=== PATIENT | male | born 1965 | race Caucasian/White ===

== ENCOUNTER 2016-07-26 08:38 | Inpatient (IN) | payer OTHER ==
[2016-07-26 10:39] VITALS: BMI 27.3
--- NOTE | 2016-07-26 13:01 | HP ---
COWS - Scale Resting Pulse: 0= [place] 80 or Below Sweatin=Flushed/Facial Moisture Restless Observation: 1= Difficult to Sit Still Pupil Size: 0= Normal to Room Light Bone or Joint Aches: 2= Severe Diffuse Aches Runny Nose/ Eye Tearin= Runny Nose/Eyes GI Upset > 30mins: 2= Nausea/Diarrhea Tremor Observation: 2= Slight Tremor Visible Yawning Observation: 2= >3x During Session Anxiety or Irritability: 2=Irritable/Anxious Goose Flesh Skin: 3=Piloerection COWS Score: 18 Admission ROS S - HPI Chief Complaint: I am here to detox. Allergies/Adverse Reactions: Allergies Allergy/AdvReac Type Severity Reaction Status Date / Time Penicillins Allergy Unknown Verified 07/26/16 10:39 cefepime Allergy Verified 07/26/16 10:39 History of Present Illness: pt is a 50yr old male with a history of heroin dependence seeking detox for treatment. Exam Limitations: Physical Impairment (chronic back pain) - Ebola screening Have you traveled outside of the country in the last 21 days: No Have you had contact with anyone from an Ebola affected area: No Have you been sick,other than usual withdrawal symptoms: No Do you have a fever: No - Review of Systems Constitutional: Chills, Diaphoresis, Loss of Appetite, Night Sweats EENT: reports: Tearing, Nose Congestion Respiratory: reports: No Symptoms reported Cardiac: reports: Lightheadedness GI: reports: Constipated, Nausea, Poor Appetite, Poor Fluid Intake : reports: No Symptoms Reported Musculoskeletal: reports: Back Pain Integumentary: reports: Flushing, Sweating Neuro: reports: Tingling, Tremors Endocrine: reports: Excessive Sweating, Flushing, Intolerance to Cold, Intolerance to Heat Hematology: reports: No Symptoms Reported Psychiatric: reports: Judgement Intact, Mood/Affect Appropiate, Orientated x3, Agitated, Anxious Other Systems: Reviewed and Negative Patient History - Patient Medical History Hx Anemia: No Hx Asthma: No Hx Chronic Obstructive Pulmonary Disease (COPD): Yes (chronic bronchitis.) Hx Cancer: No Hx Cardiac Disorders: No Hx Congestive Heart Failure: No Hx Hypertension: Yes (does not know what med.) Hx Hypercholesterolemia: No Hx Pacemaker: No HX Cerebrovascular Accident: No Hx Seizures: No Hx Dementia: No Hx Diabetes: No Hx Gastrointestinal Disorders: Yes (GERD) Hx Liver Disease: No Hx Genitourinary Disorders: No Hx Sexually Transmitted Disorders: No Hx Renal Disease (ESRD): No Hx Thyroid Disease: No Hx Human Immunodeficiency Virus (HIV): No Hx Hepatitis C: Yes (received tx. ) Hx Depression: Yes Hx Suicide Attempt: Yes (Tried to overdose in 2010) Hx Bipolar Disorder: No Hx Schizophrenia: No - Patient Surgical History Past Surgical History: No Other Surgical History: Abscess to lower back in 02/19 Anesthesia Reaction: No - PPD History Previous Implant?: Yes Documented Results: Negative w/o proof Implanted On Prior R Admission?: No PPD to be Administered?: Yes - Reproductive History Patient is a Female of Child Bearing Age (11 -55 yrs old): No - Smoking Cessation Smoking history: Current every day smoker Have you smoked in the past 12 months: Yes Aproximately how many cigarettes per day: 10 Hx Chewing Tobacco Use: No Initiated information on smoking cessation: Yes 'Breaking Loose' booklet given: 07/26/16 - Substance & Tx. History Hx Alcohol Use: No Hx Substance Use: Yes Substance Use Type: Heroin, Marijuana Hx Substance Use Treatment: Yes - Substances Abused Heroin Route: Injection Frequency: Daily Amount used: 12 BAGS Age of first use: 29 Date of Last Use: 07/26/16 Marijuana/Hashish Route: Smoking Frequency: Daily Amount used: 2 BLUNTS Age of first use: 15 Date of Last Use: 07/23/16 Family Disease History - Family Disease History Family Disease History: Diabetes: Mother (HTN), Heart Disease: Father ( of MIat 93), Other: Brother (3brother healthy and living), Sister (1 sister healthy and living) Admission Physical Exam [facility] - Vital Signs Vital Signs: Vital Signs - 24 hr 07/26/16 10:37 Temperature 95.4 F L Pulse Rate 54 L Respiratory 18 Rate Blood Pressure 139/81 - Physical General Appearance: Yes: Appropriately Dressed, Moderate Distress, Tremorous, Irritable, Sweating, Anxious HEENTM: Yes: Hearing grossly Normal, Nasal Congestion, Rhinorrhea Respiratory: Yes: Lungs Clear, Normal Breath Sounds, No Respiratory Distress Neck: Yes: No masses,lesions,Nodules Breast: Yes: Within Normal Limits Cardiology: Yes: Regular Rhythm, Regular Rate, S1, S2 Abdominal: Yes: Normal Bowel Sounds, Non Tender, Soft Genitourinary: Yes: Within Normal Limits Back: Yes: Normal Inspection Musculoskeletal: Yes: full range of Motion Extremities: Yes: Normal Capillary Refill, Normal Inspection, Tremors Neurological: Yes: Fully Oriented, Alert, Normal Mood/Affect Integumentary: Yes: Normal Color, Diaphoresis, Track [place] Lymphatic: Yes: Within Normal Limits - Diagnostic (1) Hepatitis C Current Visit: Yes Status: Chronic Qualifiers: Viral hepatitis chronicity: chronic Hepatic coma status: without hepatic coma Qualified Code(s): B18.2 - Chronic viral hepatitis C (2) Low back pain Current Visit: Yes Status: Chronic Qualifiers: Chronicity: chronic Back pain laterality: midline Sciatica presence : without sciatica Qualified Code(s): M54.5 - Low back pain; G89.29 - Other chronic pain (3) Muscle spasm Current Visit: Yes Status: Chronic (4) Opioid dependence with withdrawal Current Visit: Yes Status: Chronic (5) GERD (gastroesophageal reflux disease) Current Visit: Yes Status: Chronic Qualifiers: Esophagitis presence: without esophagitis Qualified Code(s): K21.9 - Gastro-esophageal reflux disease without esophagitis (6) Cannabis dependence Current Visit: Yes Status: Chronic Cleared for Admission [facility] - Detox or Rehab [facility] Level of Care: Medically Managed Detox Regimen/Protocol: Methadone [facility] Breath Alcohol Content Breath Alcohol Content: 0 Urine Drug Screen - Results Drug Screen Negative: No Urine Drug Screen Results: THC-Marijuana, OPI-Opiates, OXY-Oxycodone
[2016-07-26] MEDS ORDERED: hydrOXYzine PAMOATE 50 MG CAPSULE (FP) PO PRN (13:10)
[2016-07-26] MEDS ORDERED: IBUPROFEN 400 MG TABLET (FP) PO PRN (13:10)
[2016-07-26] MEDS ORDERED: MAGNESIUM HYDROX 2400MG/30ML ORAL SUSPENSION 30 ML CUP PO PRN (13:10)
[2016-07-26] MEDS ORDERED: P-EPHED 60MG/TRIPROLIDI 2.5MG TABLET PO PRN (13:10)
[2016-07-26] MEDS ORDERED: MENTHOL/PHENOL 1 EACH UD MM PRN (13:10)
[2016-07-26] MEDS ORDERED: LOPERAMIDE HCL 2 MG CAPSULE PO PRN (13:10)
[2016-07-26] MEDS ORDERED: guaiFENesin/D-METHORPHAN HB 10 ML UNIT-DOSE CUPS PO PRN (13:10)
[2016-07-26] MEDS ORDERED: MAG HYDROX/AL HYDROX/SIMETH 30 ML UNIT-DOSE CUP PO PRN (13:10)
[2016-07-26] MEDS ORDERED: MAGNESIUM CITRATE 300 ML BOTTLE PO PRN (13:10)
[2016-07-26] MEDS ORDERED: diphenhydrAMINE HCL 50 MG CAPSULE PO PRN (13:10)
[2016-07-26] MEDS ORDERED: ACETAMINOPHEN 325 MG TABLET (FP) PO PRN (13:10)
[2016-07-26] MEDS ORDERED: ALBUTEROL SO4 6.7 GM HFA INHALER IH PRN (13:12)
[2016-07-26] MEDS ORDERED: METHADONE HCL 10 MG TABLET (FOR DETOX USE ONLY) PO ONE ×2 (13:54→23:00)
[2016-07-26] MEDS: diazePAM 5 MG TABLET PO PRN ×3 (14:05→22:34)
[2016-07-26] MEDS: LIDOCAINE 5% TOPICAL PATCH TP SCH (14:27)
[2016-07-26 16:49] LABS: URINE APPEARANCE CLEAR; URINE BILIRUBIN NEGATIVE (NEGATIVE); URINE BLOOD NEGATIVE (NEGATIVE); URINE COLOR DKYELLOW; URINE GLUCOSE (UA) NEGATIVE (NEGATIVE); URINE KETONE NEGATIVE (NEGATIVE); URINE LEUK ESTERASE NEGATIVE (NEGATIVE); URINE NITRITE NEGATIVE (NEGATIVE); URINE PROTEIN NEGATIVE (NEGATIVE); URINE UROBILINOGEN 2.0 E.U/dl E.U./dl (0.2-1.0)
[2016-07-26] MEDS ORDERED: THIAMINE HCL 100 MG TABLET (FP) PO SCH (22:00)
[2016-07-27] MEDS: diazePAM 5 MG TABLET PO PRN ×2 (05:37→17:05)
[2016-07-27] MEDS ORDERED: LEVOTHYROXINE NA 25 MCG TABLET (FP) PO SCH (07:00)
--- NOTE | 2016-07-27 09:13 | CONSULT ---
[facility] Psychiatric Consult - Data Date of interview: 07/27/16 Admission source: [facility] Identifying data: First admission to [facility] for this 50 y/o Hisanic male seeking detox treatment for heroin and cannabis dependence.Patient is ,a father of five,domiciled,unemployed and deprived of any source of income. Substance Abuse History: - Smoking Cessation. Smoking history: Current every day smoker. Have you smoked in the past 12 months: Yes. Aproximately how many cigarettes per day: 10. Hx Chewing Tobacco Use: No. Initiated information on smoking cessation: Yes. 'Breaking Loose' booklet given: 07/26/16. - Substance & Tx. History. Hx Alcohol Use: No. Hx Substance Use: Yes. Substance Use Type : Heroin, Marijuana. Hx Substance Use Treatment: Yes. - Substances Abused. * * Heroin. Route: Injection. Frequency: Daily. Amount used: 12 BAGS. Age of first use: 29. Date of Last Use: 07/26/16. Marijuana/Hashish. Route: Smoking. Frequency: Daily. Amount used: 2 BLUNTS. Age of first use: 15. Date of Last Use: 07/23/16. Confirmed by patient. Medical History: Hypertension,GERD,hepatitis C,chronic low back pain,bronchitis and hyothyroidism.History of an abcess in the lumbosacral area (treated in 2014) . Psychiatric History: Used to see a psychiatrist in 2010 to address depression and anxiety.Was prescribed seroquel and gabapentin.Stopped treatment for no specific reasons.Mr Boswell denies history of psychiatric hospitalizations.He declines to return to treatment.Expresses no interest in psychotropic medications with the exception of drugs necessary for detoxification.Patient admits to one suicide attempt via overdose with Ambien in the past. Physical/Sexual Abuse/Trauma History: Patient denies. Additional Comment: Urine Drug Screen Results: THC-Marijuana, OPI-Opiates, OXY- Oxycodone.Noted. Mental Status Exam - Mental Status Exam Alert and Oriented to: Time, Place, Person Cognitive Function: Good Patient Appearance: Well Groomed Mood: Withdrawn, Anxious, Apprehensive Affect: Mood Congruent Patient Behavior: Fatigued, Appropriate, Cooperative Speech Pattern: Clear, Appropriate Voice Loudness: Normal Thought Process: Goal Oriented Thought Disorder: Not Present Hallucinations: Denies Suicidal Ideation: Denies Homicidal Ideation: Denies Insight/Judgement: Poor Sleep: Poorly, Difficulty falling asleep Appetite: Good Muscle strength/Tone: Normal Gait/Station: Other (slow pace and a limp) Psychiatric Findings - Problem List ([place] 1, 2,3) (1) Opioid dependence with withdrawal Current Visit: Yes Status: Acute (2) Cannabis dependence Current Visit: Yes Status: Acute (3) Nicotine dependence Current Visit: Yes Status: Acute (4) Substance induced mood disorder Current Visit: Yes Status: Acute (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 (6) Intractable back pain Current Visit: Yes Status: Chronic (7) GERD (gastroesophageal reflux disease) Current Visit: Yes Status: Chronic Qualifiers: Esophagitis presence: without esophagitis Qualified Code(s): K21.9 - Gastro-esophageal reflux disease without esophagitis (8) Hepatitis C Current Visit: Yes Status: Chronic Qualifiers: Viral hepatitis chronicity: chronic Hepatic coma status: without hepatic coma Qualified Code(s): B18.2 - Chronic viral hepatitis C (9) Low back pain Current Visit: Yes Status: Chronic Qualifiers: Chronicity: chronic Back pain laterality: midline Sciatica presence : without sciatica Qualified Code(s): M54.5 - Low back pain (10) Insomnia Current Visit: Yes Status: Acute - Initial Treatment Plan Initial Treatment Plan: Psychoeducation.Detoxification.Remeron 7.5 mg po hs.Side effects/benefits discussed with the patient.He agrees with this careplan.Observation.
[2016-07-27] MEDS ORDERED: NICOTINE 21 MG/24 HOURS TOPICAL PATCH TD SCH (10:00)
[2016-07-27] MEDS ORDERED: METHADONE HCL 10 MG TABLET (FOR DETOX USE ONLY) PO ONE (10:00)
[2016-07-27] MEDS ORDERED: PANTOPRAZOLE 40 MG TABLET (FP) PO SCH (10:00)
[2016-07-27] MEDS ORDERED: PRENATAL VITAMINS W/ FOLIC ACID TABLET (FP) PO SCH (10:00)
[2016-07-27 10:12] LABS: MCH 28.3 pg (25.7-33.7); MCHC 33.3 g/dl (32.0-35.9); MEAN CELL VOLUME 84.9 fl (80-96); MEAN PLT VOLUME 10.2 fl (7.5-11.1); PLATELET COUNT 193 K/MM3 (134-434); RDW 14.4 % (11.9-15.9); WHITE BLOOD COUNT 9.3 K/mm3 (4.0-10.0)
[2016-07-27 10:14] LABS: HIV 1 & 2 AB NEGATIVE; HIV 1 AGp24 NEGATIVE
[2016-07-27] MEDS: LIDOCAINE 5% TOPICAL PATCH TP SCH (10:34)
[2016-07-27 10:57] LABS: ALBUMIN 4.3 g/dl (3.4-5.0); ALK PHOS 88 U/L (45-117); ANION GAP 10 (8-16); BILIRUBIN,TOTAL 0.6 mg/dL (0.2-1.0); CALCIUM 9.3 mg/dL (8.5-10.1); CO2 28 mmol/L (21-32); CREATININE 0.7 mg/dL (0.7-1.3); GLUCOSE,RANDOM 85 mg/dL (74-106); SGOT/AST 40 U/L (15-37); SGPT/ALT 71 U/L (12-78); TOT PROT 8.2 g/dl (6.4-8.2)
[2016-07-27] MEDS ORDERED: BACITRACIN 0.9 GM PACKET TP SCH (11:00)
--- NOTE | 2016-07-27 11:00 | PN ---
S COWS - Scale Resting Pulse: 0= [place] 80 or Below Sweatin= Chills/Flushing Restless Observation: 3= Extraneous Movement Pupil Size: 2= Moderately Dilated Bone or Joint Aches: 4=Acute Joint/Muscle Pain Runny Nose/ Eye Tearin= Nasal Congestion GI Upset > 30mins: 1= Stomach Cramp Tremor Observation of Outstretched Hands: 1= Tremor [place], Not Seen Yawning Observation: 1= 1-2x During Session Anxiety or Irritability: 2=Irritable/Anxious Goose Flesh Skin: 0=Smooth Skin COWS Score: 16 S Progress Note (SOAP) Subjective: ANXIETY,BODY ACHES,SMALL ABRASION RIGHT THUMB. Objective: 07/27/16 10:59 Vital Signs Temperature 98.3 F 07/27/16 10:22 Pulse Rate 62 07/27/16 10:22 Respiratory Rate 18 07/27/16 10:22 Blood Pressure 135/89 07/27/16 10:22 O2 Sat by Pulse Oximetry (%) Laboratory Last Values WBC 9.3 K/mm3 (4.0-10.0) 07/27/16 06:00 RBC 5.59 M/mm3 (4.00-5.60) 07/27/16 06:00 Hgb 15.8 GM/dL (11.7-16.9) 07/27/16 06:00 Hct 47.5 % (35.4-49) 07/27/16 06:00 MCV 84.9 fl (80-96) 07/27/16 06:00 MCHC 33.3 g/dl (32.0-35.9) 07/27/16 06:00 RDW 14.4 % (11.9-15.9) 07/27/16 06:00 Plt Count 193 K/MM3 (134-434) D 07/27/16 06:00 MPV 10.2 fl (7.5-11.1) D 07/27/16 06:00 Sodium 140 mmol/L (136-145) 07/27/16 06:00 Potassium 4.1 mmol/L (3.5-5.1) 07/27/16 06:00 Chloride 102 mmol/L (98-107) 07/27/16 06:00 Urine Color Dkyellow 07/26/16 15:30 Urine Appearance Clear 07/26/16 15:30 Urine pH 5.0 (5.0-8.0) 07/26/16 15:30 Ur Specific [place] 1.027 (1.001-1.035) 07/26/16 15:30 Urine Protein Negative (NEGATIVE) 07/26/16 15:30 Urine Glucose (UA) Negative (NEGATIVE) 07/26/16 15:30 Urine Ketones Negative (NEGATIVE) 07/26/16 15:30 Urine Blood Negative (NEGATIVE) 07/26/16 15:30 Urine Nitrite Negative (NEGATIVE) 07/26/16 15:30 Urine Bilirubin Negative (NEGATIVE) 07/26/16 15:30 Urine Urobilinogen 2.0 e.u/dl E.U./dl (0.2-1.0) 07/26/16 15:30 Ur Leukocyte Esterase Negative (NEGATIVE) 07/26/16 15:30 HIV 1&2 Antibody Screen Negative 07/26/16 10:50 HIV P24 Antigen Negative 07/26/16 10:50 LABS NOTED Assessment: 07/27/16 10:59 WITHDRAWAL SX Plan: CONTINUE DETOX
--- NOTE | 2016-07-27 11:07 | EKG ---
Test Reason : Blood Pressure : / mmHG Vent. Rate : 051 BPM Atrial Rate : 051 BPM P-R Int : 180 ms QRS Dur : 110 ms QT Int : 436 ms P-R-T Axes : 036 012 008 degrees QTc Int : 401 ms SINUS BRADYCARDIA OTHERWISE NORMAL ECG NO PREVIOUS ECGS AVAILABLE Confirmed by ASA MCGOWAN, ROXANNE ([id number]) on 07/27/2016 11:07:21 AM Referred By: Berhane Carrera Confirmed By:ROXANNE BRAY MD
[2016-07-27 17:37] VITALS: BP 128/74; PULSE 50; TEMP 97.5
--- NOTE | 2016-07-27 18:48 | DS ---
[facility] Detox Discharge Summary Admission Date: 07/26/16 Discharge Date: 07/27/16 - History Present History: Opioid Dependence Additional Comments: PATIENT WANTS TO LEAVE THE UNIT REFUSES TO WAIT FACE TO FACE WITH PROVIDER AGREES TO CONSIDER FOLLOW UP CARE PER COUNSELOR ARRANGED REFUSES E PRESCRIPTION Pertinent Past History: GERD HEPATITIS C NICOTINE DEPENDENCE HYPOTHYROID ASTHMA COPD - Physical Exam Results Vital Signs: Vital Signs Temperature 97.5 F L 07/27/16 17:36 Pulse Rate 50 L 07/27/16 17:36 Respiratory Rate 18 07/27/16 17:36 Blood Pressure 128/74 07/27/16 17:36 O2 Sat by Pulse Oximetry (%) Pertinent Admission Physical Exam Findings: WITHDRAWAL SX Laboratory Last Values WBC 9.3 K/mm3 (4.0-10.0) 07/27/16 06:00 RBC 5.59 M/mm3 (4.00-5.60) 07/27/16 06:00 Hgb 15.8 GM/dL (11.7-16.9) 07/27/16 06:00 Hct 47.5 % (35.4-49) 07/27/16 06:00 MCV 84.9 fl (80-96) 07/27/16 06:00 MCHC 33.3 g/dl (32.0-35.9) 07/27/16 06:00 RDW 14.4 % (11.9-15.9) 07/27/16 06:00 Plt Count 193 K/MM3 (134-434) D 07/27/16 06:00 MPV 10.2 fl (7.5-11.1) D 07/27/16 06:00 Sodium 140 mmol/L (136-145) 07/27/16 06:00 Potassium 4.1 mmol/L (3.5-5.1) 07/27/16 06:00 Chloride 102 mmol/L (98-107) 07/27/16 06:00 Carbon Dioxide 28 mmol/L (21-32) 07/27/16 06:00 Anion Gap 10 (8-16) 07/27/16 06:00 BUN 12 mg/dL (7-18) 07/27/16 06:00 Creatinine 0.7 mg/dL (0.7-1.3) 07/27/16 06:00 Creat Clearance w eGFR > 60 (>60) 07/27/16 06:00 Random Glucose 85 mg/dL (74-106) 07/27/16 06:00 Calcium 9.3 mg/dL (8.5-10.1) 07/27/16 06:00 Total Bilirubin 0.6 mg/dL (0.2-1.0) 07/27/16 06:00 AST 40 U/L (15-37) H D 07/27/16 06:00 ALT 71 U/L (12-78) D 07/27/16 06:00 Alkaline Phosphatase 88 U/L (45-117) 07/27/16 06:00 Total Protein 8.2 g/dl (6.4-8.2) 07/27/16 06:00 Albumin 4.3 g/dl (3.4-5.0) 07/27/16 06:00 Urine Color Dkyellow 07/26/16 15:30 Urine Appearance Clear 07/26/16 15:30 Urine pH 5.0 (5.0-8.0) 07/26/16 15:30 Ur Specific [place] 1.027 (1.001-1.035) 07/26/16 15:30 Urine Protein Negative (NEGATIVE) 07/26/16 15:30 Urine Glucose (UA) Negative (NEGATIVE) 07/26/16 15:30 Urine Ketones Negative (NEGATIVE) 07/26/16 15:30 Urine Blood Negative (NEGATIVE) 07/26/16 15:30 Urine Nitrite Negative (NEGATIVE) 07/26/16 15:30 Urine Bilirubin Negative (NEGATIVE) 07/26/16 15:30 Urine Urobilinogen 2.0 e.u/dl E.U./dl (0.2-1.0) 07/26/16 15:30 Ur Leukocyte Esterase Negative (NEGATIVE) 07/26/16 15:30 RPR Titer Nonreactive (NONREACTIVE) 07/27/16 06:00 HIV 1&2 Antibody Screen Negative 07/26/16 10:50 HIV P24 Antigen Negative 07/26/16 10:50 LAB NOTED - Treatment Hospital Course: Detox Protocol Followed, Responded well - Medication Discharge Medications: Ambulatory Orders Gabapentin [Neurontin -] 300 mg PO TID capsule 03/25/15 Oxycodone HCl [Roxicodone -] 5 mg PO Q6H PRN #0 tablet 03/25/15 Albuterol Sulfate Inhaler - [Ventolin Hfa Inhaler -] 2 inh PO Q4H PRN 07/26/16 Levothyroxine [Synthroid -] 25 mcg PO DAILY 07/26/16 Pantoprazole Sodium [Protonix -] 40 mg PO DAILY 07/26/16 Mirtazapine [Remeron -] 15 mg PO HS #30 tablet 07/27/16 - Diagnosis (1) Nicotine dependence Status: Acute Qualifiers: Nicotine product type: cigarettes Substance use status: in withdrawal Qualified Code(s): F17.213 - Nicotine dependence, cigarettes, with withdrawal (2) Opioid dependence with withdrawal Status: Acute (3) GERD (gastroesophageal reflux disease) Status: Acute Qualifiers: Esophagitis presence: without esophagitis Qualified Code(s): K21.9 - Gastro-esophageal reflux disease without esophagitis (4) Hepatitis C Status: Chronic Qualifiers: Viral hepatitis chronicity: chronic Hepatic coma status: without hepatic coma Qualified Code(s): B18.2 - Chronic viral hepatitis C - AMA Did Patient Leave Against Medical Advice: Yes
[2016-07-27] MEDS ORDERED: MIRTAZAPINE 15 MG TABLET (FP) PO SCH (22:00)
[2016-07-28] MEDS ORDERED: METHADONE HCL 5 MG TABLET (FOR DETOX USE ONLY) PO ONE (10:00)
[2016-07-29] MEDS ORDERED: METHADONE HCL 5 MG TABLET (FOR DETOX USE ONLY) PO ONE (10:00)
[2016-07-30] MEDS ORDERED: METHADONE HCL 10 MG TABLET (FOR DETOX USE ONLY) PO ONE (10:00)
[2016-07-31] MEDS ORDERED: METHADONE HCL 5 MG TABLET (FOR DETOX USE ONLY) PO ONE (06:00)
== END 2016-07-27 18:49 | disposition left against medical advice (07) | DRG 770 ==
LOC: YASAS 08:38 → Y3N 11:56
PROVIDERS: ADMIT Internal Medicine; ATTEND Internal Medicine
PROC: HZ2ZZZZ Detoxification Services for Substance Abuse Treatment (ICD-10-PCS; principal; 2016-07-26)
DX: F11.23 Opioid dependence with withdrawal (principal); F12.20 Cannabis dependence, uncomplicated; F17.210 Nicotine dependence, cigarettes, uncomplicated; F19.24 Other psychoactive substance dependence with psychoactive substance-induced mood disorder; K21.9 Gastro-esophageal reflux disease without esophagitis; B18.2 Chronic viral hepatitis C; M54.5 Low back pain; G89.29 Other chronic pain; G47.00 Insomnia, unspecified; J44.9 Chronic obstructive pulmonary disease, unspecified; I10 Essential (primary) hypertension; Z91.5 Personal history of self-harm
CPT/HCPCS: 36415; 80053; 81003; 85027; 86593; 87389; 93005; 93010

== ENCOUNTER 2017-01-06 18:21 | Emergency (ER) | payer OTHER ==
[2017-01-06 18:27] VITALS: BP 120/75; PULSE 71; TEMP 98; BMI 27.3
--- NOTE | 2017-01-06 19:21 | PDOC ---
History of Present Illness - General Chief Complaint: Wound Stated Complaint: CYST Time Seen by Provider: 01/06/17 18:42 History Source: Patient Exam Limitations: No Limitations - History of Present Illness Initial Comments: 01/06/17 19:56 This is a 51yo man with PMH HCV and IV heroin use who presents today with "pimple" to left thigh worsening over 4 days. He denies using heroin since . He states the abscess started as a small "pimple" and has now progressed to large area over left thigh. He denies discharge, fevers, streaking, nausea, vomiting. Location: reports: extremities (left lateral thigh) Past History - Past Medical History Allergies/Adverse Reactions: Allergies Allergy/AdvReac Type Severity Reaction Status Date / Time Penicillins Allergy Unknown Verified 01/06/17 18:27 cefepime Allergy Verified 01/06/17 18:27 Home Medications: Ambulatory Orders Doxycycline Monohydrate [Monodox] 100 mg PO Q12H #20 capsule 01/06/17 Anemia: No Asthma: No Cancer: No Cardiac Disorders: No CVA: No COPD: Yes (chronic bronchitis.) CHF: No Dementia: No Diabetes: No GI Disorders: Yes (GERD) Disorders: No HTN: Yes (does not know what med.) Hypercholesterolemia: No Kidney Stones: No Liver Disease: No Psychiatric Problems: Yes (DEPRESSION,BIPOLAR,) Suicide Attempt (Hx): Yes (Tried to overdose in 2010) Seizures: No Thyroid Disease: No - Reproductive History Testicular Surgery: No - Immunization History Immunization Up to Date: Yes - Psycho/Social/Smoking Cessation Hx Anxiety: Yes Suicidal Ideation: No Smoking History: Current every day smoker Have you smoked in the past 12 months: Yes Number of Cigarettes Smoked Daily: 10 If you are a former smoker, when did you quit?: 25 days as of 03/28/15 Information on smoking cessation initiated: Yes 'Breaking Loose' booklet given: 01/06/17 Hx Alcohol Use: No Drug/Substance Use Hx: No Substance Use Type: None Hx Substance Use Treatment: Yes Review of Systems - Review of Systems Able to Perform ROS?: Yes Is the patient limited Indonesian proficient: No Constitutional: No: Symptoms Reported HEENTM: No: Symptoms Reported Respiratory: No: Symptoms reported Cardiac (ROS): No: Symptoms Reported ABD/GI: No: Symptoms Reported : No: Symptoms Reported Musculoskeletal: No: Symptoms Reported Integumentary: Yes: See HPI Neurological: No: Symptoms reported *Physical Exam - Vital Signs Last Vital Signs Temp Pulse Resp BP Pulse Ox 98 F 71 17 120/75 99 01/06/17 18:25 01/06/17 18:25 01/06/17 18:25 01/06/17 18:25 01/06/17 18:25 - Physical Exam General Appearance: Yes: Appropriately Dressed. No: Apparent Distress HEENT: positive: EOMI, CESARIO, Normal ENT Inspection, TMs Normal, Pharynx Normal Neck: positive: Trachea midline, Supple. negative: Tender Respiratory/Chest: positive: Lungs Clear, Normal Breath Sounds. negative: Chest Tender, Respiratory Distress, Accessory Muscle Use Cardiovascular: positive: Regular Rhythm, Regular Rate, S1, S2. negative: Edema , JVD, Murmur Gastrointestinal/Abdominal: positive: Normal Bowel Sounds, Soft. negative: Tender, Organomegaly Lymphatic: negative: Adenopathy Musculoskeletal: positive: Normal Inspection. negative: CVA Tenderness Extremity: positive: Normal Capillary Refill, Normal Inspection, Normal Range of Motion Integumentary: positive: Other (10cm circular erythem present to left lateral thigh. 0.25cm area of loculation present at center.) Medical Decision Making - Medical Decision Making 01/06/17 22:25 A: This is a 51yo man with PMH HCV and IV heroin use who presents today with "pimple" to left thigh worsening over 4 days. He denies using heroin since . He states the abscess started as a small "pimple" and has now progressed to large area over left thigh. He denies discharge, fevers, nausea, vomiting. No streaking noted. 10cm circular area of erythema present over left lateral thigh with 0.25cm area of superficial loculation. P: - area of cellulitis outlined with skin marker - PO clindamycin as outpatient - discharge *DC/Admit/Observation/Transfer Diagnosis at time of Disposition: Abscess or cellulitis of thigh - Discharge Dispostion Disposition: HOME Admit: No - Prescriptions Prescriptions: Doxycycline Monohydrate [Monodox] 100 mg PO Q12H #20 capsule - Patient Instructions Printed Discharge Instructions: DI for Skin Abscess Additional Instructions: Use warm compresses to affected area 2-3 times daily. Take doxycycline 100mg every 12 hours until all medications are completed. Return to ED for worsening redness, increased pain or any other concerns. Thank you for choosing us to provide your emergent medical care.
== END 2017-01-06 19:43 | disposition home or self-care (01) ==
LOC: JERFT 18:21
DX: L02.416 Cutaneous abscess of left lower limb (principal); I10 Essential (primary) hypertension; F31.9 Bipolar disorder, unspecified; K21.9 Gastro-esophageal reflux disease without esophagitis; J42 Unspecified chronic bronchitis
CPT/HCPCS: 99281-25

== ENCOUNTER 2017-02-14 23:48 | Emergency (ER) | payer OTHER ==
[2017-02-15 00:36] VITALS: BP 147/95; PULSE 54; TEMP 98.4; BMI 28.0
[2017-02-15] MEDS ORDERED: IBUPROFEN 400 MG TABLET (FP) PO ONE ×2 (00:43→00:47)
[2017-02-15] MEDS ORDERED: predniSONE 20 MG TABLET (UD) PO ONE (00:43)
[2017-02-15] MEDS ORDERED: diphenhydrAMINE HCL 25 MG CAPSULE (FP) PO ONE ×2 (00:44→00:47)
[2017-02-15] MEDS ORDERED: predniSONE 20 MG TABLET (UD) ONE (00:46)
--- NOTE | 2017-02-15 00:47 | PDOC ---
History of Present Illness - General History Source: Patient <Derek Beaver - Last Filed: 02/15/17 00:48> - General History Source: Patient Exam Limitations: No Limitations - History of Present Illness Initial Comments: 02/15/17 00:54 51 yr old male, with significant pmhx of hepatitis C and IV drug use, who presents to the emergency room complaining of 3 days of a rash on the hands, arms, and legs bilaterally. He noticed the rash started after working in the yard a couple of days ago. The rash was initially weepy in nature and eventually the they opened and blistered. The blisters are diffuse all throughout the body, but states that they are predominantly on the arms and legs bilaterally. He just noticed the blisters between the fingers and on the finger tips. Denies fever, chills, nausea, vomiting. Denies SOB, difficulty breathing. Allergies: penicillin, cefepime <Celina Plaza - Last Filed: 02/15/17 00:55> - General Chief Complaint: Rash Stated Complaint: RASH Time Seen by Provider: 02/15/17 00:38 Past History - Past Medical History Anemia: No Asthma: No Cancer: No Cardiac Disorders: No CVA: No COPD: Yes (chronic bronchitis.) CHF: No Dementia: No Diabetes: No GI Disorders: Yes (GERD) Disorders: No HTN: Yes (does not know what med.) Hypercholesterolemia: No Kidney Stones: No Liver Disease: No Psychiatric Problems: Yes (DEPRESSION,BIPOLAR,) Seizures: No Thyroid Disease: No - Reproductive History Testicular Surgery: No - Immunization History Immunization Up to Date: Yes - Suicide/Smoking/Psychosocial Hx Smoking History: Current some day smoker Have you smoked in the past 12 months: Yes Number of Cigarettes Smoked Daily: 5 If you are a former smoker, when did you quit?: 25 days as of 03/28/15 Information on smoking cessation initiated: No 'Breaking Loose' booklet given: 01/06/17 Hx Alcohol Use: No Drug/Substance Use Hx: No Substance Use Type: None Hx Substance Use Treatment: Yes <Derek Beaver - Last Filed: 02/15/17 00:48> <Celina Plaza - Last Filed: 02/15/17 00:55> - Past Medical History Allergies/Adverse Reactions: Allergies Allergy/AdvReac Type Severity Reaction Status Date / Time Penicillins Allergy Unknown Verified 02/15/17 00:35 cefepime Allergy Verified 02/15/17 00:35 Home Medications: Ambulatory Orders Diphenhydramine HCl [Benadryl Capsules -] 25 mg PO TID #30 capsule 02/15/17 Ibuprofen 800 mg PO TID #30 tablet 02/15/17 Loratadine [Claritin] 10 mg PO DAILY #30 tablet 02/15/17 Methylprednisolone [Medrol Dose Virgilio] 4 mg PO ASDIR #21 tablet 02/15/17 Review of Systems - Review of Systems Able to Perform ROS?: Yes Comments:: 02/15/17 00:54 CONSTITUTIONAL: Absent: fever, no chills, no fatigue EYES: Absent: visual changes ENT: Absent: ear pain, no sore throat CARDIOVASCULAR: Absent: chest pain, no palpitations RESPIRATORY: Absent: cough, no SOB GI: Absent: abdominal pain, no nausea, no vomiting, no constipation, no diarrhea GENITOURINARY: Absent: dysuria, no frequency, no hematuria MUSCULOSKELETAL: Absent: back pain, no arthralgia, no myalgia SKIN: Present: rash on the arms, legs, and fingers bilaterally. <Celina Plaza - Last Filed: 02/15/17 00:55> *Physical Exam - Vital Signs Last Vital Signs Temp Pulse Resp BP Pulse Ox 98.4 F 54 L 18 147/95 99 02/15/17 00:33 02/15/17 00:33 02/15/17 00:33 02/15/17 00:33 02/15/17 00:33 <Derek Beaver - Last Filed: 02/15/17 00:48> - Vital Signs Last Vital Signs Temp Pulse Resp BP Pulse Ox 98.4 F 54 L 18 147/95 99 02/15/17 00:33 02/15/17 00:33 02/15/17 00:33 02/15/17 00:33 02/15/17 00:33 - Physical Exam Comments: 02/15/17 00:54 GENERAL: Well-appearing, well-nourished. No apparent distress. HEENT: Normocephalic, atraumatic. PERRL, EOM intact. CARDIOVASCULAR: Normal S1, S2. Regular rate and rhythm. PULMONARY: Clear to auscultation bilaterally. ABDOMEN: Soft, non-distended, non-tender. EXTREMITIES: Normal ROM in all four extremities. No gross deformities. SKIN: Diffuse vesicular lesions on the forearms bilaterally, anterior lower extremities bilaterally, and in between the fingers. NEUROLOGICAL: No focal neurological deficits. <Celina Plaza - Last Filed: 02/15/17 00:55> ED Treatment Course - Medications Given in the ED: ED Medications Discontinued Medications Generic Name Dose Route Start Last Admin Trade Name Carmita PRN Reason Stop Dose Admin Diphenhydramine HCl 25 mg 02/15/17 00:44 02/15/17 00:51 Benadryl - PO 02/15/17 00:45 25 mg ONCE ONE Administration Ibuprofen 800 mg 02/15/17 00:43 02/15/17 00:51 Motrin - PO 02/15/17 00:44 800 mg ONCE ONE Administration Prednisone 60 mg 02/15/17 00:43 02/15/17 00:51 Deltasone - PO 02/15/17 00:44 60 mg ONCE ONE Administration <Celina Plaza - Last Filed: 02/15/17 00:55> Medical Decision Making - Medical Decision Making 02/15/17 00:47 Dr. Beaver: The scribe's documentation has been prepared under my direction and personally reviewed by me in its entirery. I confirm that the note above accurately reflects all work, treatment, procedures, and medical decision making performed by me. <Derek Beaver - Last Filed: 02/15/17 00:48> *DC/Admit/Observation/Transfer - Discharge Dispostion Admit: No <Derek Beaver - Last Filed: 02/15/17 00:48> - Attestations Scribe Attestion: 02/15/17 00:54 Documentation prepared by STEPAHNIE Fritz, acting as medical and scientific illustrator for Derek Beaver MD. <Celnia Plaza - Last Filed: 02/15/17 00:55> Diagnosis at time of Disposition: Poison ellyn dermatitis - Discharge Dispostion Disposition: HOME Condition at time of disposition: Stable - Prescriptions Prescriptions: Diphenhydramine HCl [Benadryl Capsules -] 25 mg PO TID #30 capsule Loratadine [Claritin] 10 mg PO DAILY #30 tablet Ibuprofen 800 mg PO TID #30 tablet Methylprednisolone [Medrol Dose Virgilio] 4 mg PO ASDIR #21 tablet - Patient Instructions Printed Discharge Instructions: DI for Poison Ellyn Allergy Additional Instructions: Keep skin clean and dry. Wash everything you touch completely. Take medications as directed. Attempt not to scratch - Post Discharge Activity Forms/Work/School Notes: Back to Work
== END 2017-02-15 00:57 | disposition home or self-care (01) ==
LOC: JER 23:48
DX: K21.9 Gastro-esophageal reflux disease without esophagitis (principal); F32.9 Major depressive disorder, single episode, unspecified; F31.9 Bipolar disorder, unspecified; J44.9 Chronic obstructive pulmonary disease, unspecified; B19.20 Unspecified viral hepatitis C without hepatic coma; F17.210 Nicotine dependence, cigarettes, uncomplicated
CPT/HCPCS: 99281-25

== ENCOUNTER 2017-08-21 08:59 | Inpatient (IN) | payer OTHER ==
[2017-08-21 09:43] VITALS: BMI 27.3
--- NOTE | 2017-08-21 11:28 | HP ---
COWS - Scale Resting Pulse: 0= [place] 80 or Below Sweatin=Flushed/Facial Moisture Restless Observation: 3= Extraneous Movement Pupil Size: 2= Moderately Dilated Bone or Joint Aches: 2= Severe Diffuse Aches Runny Nose/ Eye Tearin= Runny Nose/Eyes GI Upset > 30mins: 3= Vomiting/Diarrhea Tremor Observation: 2= Slight Tremor Visible Yawning Observation: 2= >3x During Session Anxiety or Irritability: 2=Irritable/Anxious Goose Flesh Skin: 0=Smooth Skin COWS Score: 20 Admission ROS S - HPI Chief Complaint: i need help to stop using heroin and marijuana Allergies/Adverse Reactions: Allergies Allergy/AdvReac Type Severity Reaction Status Date / Time cefepime Allergy Severe Verified 08/21/17 09:43 Penicillins Allergy Unknown Verified 08/21/17 09:43 History of Present Illness: this 51 years old male with heroin and marijuana dependence,seeking detox, withdrawal symptom,last detox [facility] in 11/21 hepatitis c treated weight loss nicotine dependence longest period of sobriety for 5 and half years Exam Limitations: No Limitations - Ebola screening Have you traveled outside of the country in the last 21 days: No (N) Have you had contact with anyone from an Ebola affected area: No Have you been sick,other than usual withdrawal symptoms: No Do you have a fever: No - Review of Systems Constitutional: Chills, Loss of Appetite, Night Sweats, Changes in sleep, Weakness, Weight Stable, Unintentional Wgt. Loss EENT: reports: Tearing, Nose Congestion Respiratory: reports: No Symptoms reported Cardiac: reports: No Symptoms Reported GI: reports: Diarrhea, Nausea, Vomiting, Abdominal cramping Musculoskeletal: reports: Back Pain, Joint Pain, Muscle Pain, Joint Stiffness Integumentary: reports: Dryness Neuro: reports: Headache, Tremors Endocrine: reports: No Symptoms Reported Hematology: reports: No Symptoms Reported Psychiatric: reports: No Sypmtoms Reported, Judgement Intact, Mood/Affect Appropiate, Orientated x3 Patient History - Patient Medical History Hx Anemia: No Hx Asthma: Yes (on albuteol inhaler) Hx Chronic Obstructive Pulmonary Disease (COPD): No Hx Cancer: No Hx Cardiac Disorders: No Hx Congestive Heart Failure: No Hx Hypertension: No Hx Hypercholesterolemia: No Hx Pacemaker: No HX Cerebrovascular Accident: No Hx Seizures: No Hx Dementia: No Hx Diabetes: No Hx Gastrointestinal Disorders: No Hx Liver Disease: No Hx Genitourinary Disorders: No Hx Sexually Transmitted Disorders: No Hx Renal Disease (ESRD): No Hx Thyroid Disease: No Hx Human Immunodeficiency Virus (HIV): No (last 2015) Hx Hepatitis C: Yes (received tx. ) Hx Depression: No Hx Suicide Attempt: No Hx Bipolar Disorder: No Hx Schizophrenia: No Other Medical History: no suicidal,no homicidal - Patient Surgical History Past Surgical History: Yes Hx Neurologic Surgery: No Hx Cataract Extraction: No Hx Cardiac Surgery: No Hx Lung Surgery: No Hx Breast Surgery: No Hx Breast Biopsy: No Hx Abdominal Surgery: No Hx Appendectomy: No Hx Cholecystectomy: No Hx Genitourinary Surgery: No Hx Section: No Hx Orthopedic Surgery: No Other Surgical History: Abscess to lower back in 02/19 Anesthesia Reaction: No - PPD History Previous Implant?: Yes Documented Results: Negative w/proof Date: 07/28/16 PPD to be Administered?: Yes - Smoking Cessation Smoking history: Current every day smoker Have you smoked in the past 12 months: Yes Aproximately how many cigarettes per day: 20 If you are a former smoker, when did you quit?: 25 days as of 03/28/15 Hx Chewing Tobacco Use: No Initiated information on smoking cessation: Yes 'Breaking Loose' booklet given: 08/21/17 - Substances Abused Heroin Route: Injection Frequency: Daily Amount used: 5 bags Age of first use: 69 Date of Last Use: 08/20/17 Family Disease History - Family Disease History Family Disease History: Diabetes: Mother (HTN), Heart Disease: Father ( of MIat 93), Other: Brother (3brother healthy and living), Sister (1 sister healthy and living) Admission Physical Exam S - Vital Signs Vital Signs: Vital Signs - 24 hr 08/21/17 09:33 Temperature 95.1 F L Pulse Rate 59 L Respiratory 20 Rate Blood Pressure 142/96 - Physical General Appearance: Yes: Moderate Distress, Tremorous, Irritable, Sweating, Anxious HEENTM: Yes: C[place]IO, Pharynx Normal Respiratory: Yes: Lungs Clear, Normal Breath Sounds Neck: Yes: Within Normal Limits, Supple, Trachea in good position Breast: Yes: Within Normal Limits Cardiology: Yes: Within Normal Limits, Regular Rhythm, Regular Rate, S1, S2 Abdominal: Yes: Within Normal Limits, Normal Bowel Sounds, Non Tender, Flat, Soft Genitourinary: Yes: Within Normal Limits Back: Yes: Within Normal Limits, Normal Inspection, Muscle Spasm Musculoskeletal: Yes: full range of Motion, Back pain, Joint Stiffness, Muscle Pain Extremities: Yes: Within Normal Limits, Normal Range of Motion, Tremors 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, Alert, Motor Strength 5/5, Normal Mood /Affect Integumentary: Yes: Dry, Track [place] Lymphatic: Yes: Within Normal Limits - Diagnostic (1) Opioid dependence with withdrawal Current Visit: Yes Status: Acute (2) Cannabis dependence Current Visit: No Status: Acute (3) GERD (gastroesophageal reflux disease) Current Visit: Yes Status: Chronic Qualifiers: Esophagitis presence: esophagitis presence not specified Qualified Code(s) : K21.9 - Gastro-esophageal reflux disease without esophagitis (4) IV drug abuse Current Visit: No Status: Acute (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 (6) Hepatitis C Current Visit: Yes Status: Chronic Qualifiers: Viral hepatitis chronicity: chronic Hepatic coma status: without hepatic coma Qualified Code(s): B18.2 - Chronic viral hepatitis C (7) Low back pain Current Visit: Yes Status: Chronic Qualifiers: Chronicity: chronic Back pain laterality: midline Sciatica presence: without sciatica Qualified Code(s): M54.5 - Low back pain; G89.29 - Other chronic pain; G89.29 - Other chronic pain Cleared for Admission [facility] - Detox or Rehab [facility] Level of Care: Medically Managed Detox Regimen/Protocol: Methadone [facility] Breath Alcohol Content Breath Alcohol Content: 0 Urine Drug Screen - Results Drug Screen Negative: No Urine Drug Screen Results: THC-Marijuana, OPI-Opiates
[2017-08-21] MEDS ORDERED: hydrOXYzine PAMOATE 50 MG CAPSULE (FP) PO PRN (11:42)
[2017-08-21] MEDS ORDERED: LOPERAMIDE HCL 2 MG CAPSULE PO PRN (11:42)
[2017-08-21] MEDS ORDERED: P-EPHED 60MG/TRIPROLIDI 2.5MG TABLET PO PRN (11:42)
[2017-08-21] MEDS ORDERED: MAG HYDROX/AL HYDROX/SIMETH 30 ML UNIT-DOSE CUP PO PRN (11:42)
[2017-08-21] MEDS ORDERED: MAGNESIUM HYDROX 2400MG/30ML ORAL SUSPENSION 30 ML CUP PO PRN (11:42)
[2017-08-21] MEDS ORDERED: ACETAMINOPHEN 325 MG TABLET (FP) PO PRN (11:42)
[2017-08-21] MEDS ORDERED: MAGNESIUM CITRATE 300 ML BOTTLE PO PRN (11:42)
[2017-08-21] MEDS ORDERED: IBUPROFEN 400 MG TABLET (FP) PO PRN (11:42)
[2017-08-21] MEDS ORDERED: guaiFENesin/D-METHORPHAN HB 10 ML UNIT-DOSE CUPS PO PRN (11:42)
[2017-08-21] MEDS ORDERED: MENTHOL/PHENOL 1 EACH UD MM PRN (11:42)
[2017-08-21] MEDS ORDERED: CYCLOBENZAPRINE HCL 10 MG TABLET (FP) PO PRN (11:45)
[2017-08-21] MEDS ORDERED: METHADONE HCL 10 MG TABLET (FOR DETOX USE ONLY) PO ONE ×2 (12:05→23:00)
[2017-08-21] MEDS: diazePAM 5 MG TABLET PO PRN ×3 (13:37→22:25)
[2017-08-21] MEDS: NICOTINE 21 MG/24 HOURS TOPICAL PATCH TD SCH (13:40)
--- NOTE | 2017-08-21 17:05 | EKG ---
Test Reason : Blood Pressure : / mmHG Vent. Rate : 062 BPM Atrial Rate : 062 BPM P-R Int : 166 ms QRS Dur : 110 ms QT Int : 416 ms P-R-T Axes : -03 -16 -01 degrees QTc Int : 422 ms NORMAL SINUS RHYTHM NORMAL ECG WHEN COMPARED WITH ECG OF 26-JUL-2016 13:11, NO SIGNIFICANT CHANGE WAS FOUND Confirmed by POLLY MTZ MD ([id number]) on 08/21/2017 5:05:07 PM Referred By: Confirmed By:POLLY MTZ MD
[2017-08-21] MEDS: cloNIDine HCL 0.1 MG TABLET PO SCH (22:25)
[2017-08-21] MEDS: THIAMINE HCL 100 MG TABLET (FP) PO SCH (22:25)
[2017-08-22 00:21] LABS: URINE APPEARANCE CLEAR; URINE BILIRUBIN NEGATIVE (<2.0 mg/dL); URINE BLOOD NEGATIVE (NEGATIVE); URINE COLOR AMBER; URINE GLUCOSE (UA) NEGATIVE (NEGATIVE); URINE KETONE NEGATIVE (NEGATIVE); URINE LEUK ESTERASE NEGATIVE (NEGATIVE); URINE NITRITE NEGATIVE (NEGATIVE); URINE PROTEIN NEGATIVE (NEGATIVE)
[2017-08-22] MEDS ORDERED: METHADONE HCL 10 MG TABLET (FOR DETOX USE ONLY) PO ONE (10:00)
[2017-08-22 10:24] LABS: HEMATOCRIT 48.3 % (35.4-49); HEMOGLOBIN 16.5 GM/dL (11.7-16.9); MCH 29.4 pg (25.7-33.7); MCHC 34.2 g/dl (32.0-35.9); MEAN CELL VOLUME 85.8 fl (80-96); MEAN PLT VOLUME 10.9 fl (7.5-11.1); PLATELET COUNT 198 K/MM3 (134-434); RBC 5.62 M/mm3 (4.00-5.60); RDW 14.4 % (11.9-15.9); WHITE BLOOD COUNT 6.7 K/mm3 (4.0-10.0)
[2017-08-22 10:27] LABS: CHLORIDE 104 mmol/L (98-107); POTASSIUM 3.8 mmol/L (3.5-5.1); SODIUM 140 mmol/L (136-145)
[2017-08-22 10:36] LABS: ALBUMIN 4.2 g/dl (3.4-5.0); ALK PHOS 98 U/L (45-117); ANION GAP 5 (8-16); BILIRUBIN,TOTAL 0.8 mg/dL (0.2-1.0); BLOOD UREA NITROGEN 9 mg/dL (7-18); CALCIUM 9.2 mg/dL (8.5-10.1); CO2 31 mmol/L (21-32); CREATININE 0.9 mg/dL (0.7-1.3); GLUCOSE,RANDOM 113 mg/dL (74-106); SGOT/AST 27 U/L (15-37); SGPT/ALT 37 U/L (12-78); TOT PROT 8.4 g/dl (6.4-8.2)
[2017-08-22] MEDS: PRENATAL VITAMINS W/ FOLIC ACID TABLET (FP) PO SCH (10:46)
[2017-08-22] MEDS: NICOTINE 21 MG/24 HOURS TOPICAL PATCH TD SCH (10:46)
[2017-08-22] MEDS: diazePAM 5 MG TABLET PO PRN ×3 (10:46→22:27)
[2017-08-22] MEDS: cloNIDine HCL 0.1 MG TABLET PO SCH ×2 (10:50→22:25)
--- NOTE | 2017-08-22 13:40 | PN ---
BHS COWS - Scale Resting Pulse: 0= [place] 80 or Below Sweatin= Chills/Flushing Restless Observation: 3= Extraneous Movement Pupil Size: 2= Moderately Dilated Bone or Joint Aches: 4=Acute Joint/Muscle Pain Runny Nose/ Eye Tearin= None GI Upset > 30mins: 0= None Tremor Observation of Outstretched Hands: 1= Tremor [place], Not Seen Yawning Observation: 0= None Anxiety or Irritability: 1=Feels Anxious/Irritable Goose Flesh Skin: 0=Smooth Skin COWS Score: 12 BHS Progress Note (SOAP) Subjective: ANXIETY,SWEATS/CHILLS,FATIGUE Objective: 08/22/17 13:39 Vital Signs Temperature 97.5 F L 08/22/17 09:14 Pulse Rate 53 L 08/22/17 09:14 Respiratory Rate 18 08/22/17 09:14 Blood Pressure 122/78 08/22/17 09:14 O2 Sat by Pulse Oximetry (%) Laboratory Last Values WBC 6.7 K/mm3 (4.0-10.0) 08/22/17 06:00 RBC 5.62 M/mm3 (4.00-5.60) H 08/22/17 06:00 Hgb 16.5 GM/dL (11.7-16.9) 08/22/17 06:00 Hct 48.3 % (35.4-49) 08/22/17 06:00 MCV 85.8 fl (80-96) 08/22/17 06:00 MCH 29.4 pg (25.7-33.7) 08/22/17 06:00 MCHC 34.2 g/dl (32.0-35.9) 08/22/17 06:00 RDW 14.4 % (11.9-15.9) 08/22/17 06:00 Plt Count 198 K/MM3 (134-434) 08/22/17 06:00 MPV 10.9 fl (7.5-11.1) 08/22/17 06:00 Sodium 140 mmol/L (136-145) 08/22/17 06:00 Potassium 3.8 mmol/L (3.5-5.1) 08/22/17 06:00 Chloride 104 mmol/L (98-107) 08/22/17 06:00 Carbon Dioxide 31 mmol/L (21-32) 08/22/17 06:00 Anion Gap 5 (8-16) L 08/22/17 06:00 BUN 9 mg/dL (7-18) D 08/22/17 06:00 Creatinine 0.9 mg/dL (0.7-1.3) D 08/22/17 06:00 Creat Clearance w eGFR > 60 (>60) 08/22/17 06:00 Random Glucose 113 mg/dL (74-106) H D 08/22/17 06:00 Calcium 9.2 mg/dL (8.5-10.1) 08/22/17 06:00 Total Bilirubin 0.8 mg/dL (0.2-1.0) D 08/22/17 06:00 AST 27 U/L (15-37) D 08/22/17 06:00 ALT 37 U/L (12-78) D 08/22/17 06:00 Alkaline Phosphatase 98 U/L (45-117) 08/22/17 06:00 Total Protein 8.4 g/dl (6.4-8.2) H 08/22/17 06:00 Albumin 4.2 g/dl (3.4-5.0) 08/22/17 06:00 Urine Color Trina 08/21/17 00:00 Urine Appearance Clear 08/21/17 00:00 Urine pH 5.0 (5.0-8.0) 08/21/17 00:00 Ur Specific [place] 1.021 (1.001-1.035) 08/21/17 00:00 Urine Protein Negative (NEGATIVE) 08/21/17 00:00 Urine Glucose (UA) Negative (NEGATIVE) 08/21/17 00:00 Urine Ketones Negative (NEGATIVE) 08/21/17 00:00 Urine Blood Negative (NEGATIVE) 08/21/17 00:00 Urine Nitrite Negative (NEGATIVE) 08/21/17 00:00 Urine Bilirubin Negative (<2.0 mg/dL) 08/21/17 00:00 Urine Urobilinogen 2.0 mg/dL (0.2-1.0) 08/21/17 00:00 Ur Leukocyte Esterase Negative (NEGATIVE) 08/21/17 00:00 RPR Titer Nonreactive (NONREACTIVE) 08/22/17 06:00 Assessment: 08/22/17 13:40 WITHDRAWAL SX Plan: CONTINUE DETOX
[2017-08-22] MEDS: MELATONIN 5 MG TABLETS PO PRN (22:25)
[2017-08-22] MEDS: THIAMINE HCL 100 MG TABLET (FP) PO SCH (22:25)
[2017-08-23] MEDS ORDERED: METHADONE HCL 5 MG TABLET (FOR DETOX USE ONLY) PO ONE (10:00)
[2017-08-23] MEDS: diazePAM 5 MG TABLET PO PRN ×2 (10:40→18:23)
[2017-08-23] MEDS: NICOTINE 21 MG/24 HOURS TOPICAL PATCH TD SCH (10:40)
[2017-08-23] MEDS: cloNIDine HCL 0.1 MG TABLET PO SCH ×2 (10:40→22:35)
[2017-08-23] MEDS: PRENATAL VITAMINS W/ FOLIC ACID TABLET (FP) PO SCH (10:40)
[2017-08-23] MEDS ORDERED: FLU VACCINE QUAD 60 MCG/0.5 ML (MDV 17-18) IM ONE (12:00)
--- NOTE | 2017-08-23 14:01 | PN ---
BHS COWS - Scale Resting Pulse: 0= MO 80 or Below Sweatin= Chills/Flushing Restless Observation: 3= Extraneous Movement Pupil Size: 2= Moderately Dilated Bone or Joint Aches: 4=Acute Joint/Muscle Pain Runny Nose/ Eye Tearin= Nasal Congestion GI Upset > 30mins: 0= None Tremor Observation of Outstretched Hands: 1= Tremor [place], Not Seen Yawning Observation: 1= 1-2x During Session Anxiety or Irritability: 2=Irritable/Anxious Goose Flesh Skin: 0=Smooth Skin COWS Score: 15 BHS Progress Note (SOAP) Subjective: ANXIETY,SWEATS,BACK PAIN. Objective: 08/23/17 14:02 Vital Signs Temperature 97.0 F L 08/23/17 11:19 Pulse Rate 62 08/23/17 11:19 Respiratory Rate 20 08/23/17 11:19 Blood Pressure 130/84 08/23/17 11:19 O2 Sat by Pulse Oximetry (%) Laboratory Last Values WBC 6.7 K/mm3 (4.0-10.0) 08/22/17 06:00 RBC 5.62 M/mm3 (4.00-5.60) H 08/22/17 06:00 Hgb 16.5 GM/dL (11.7-16.9) 08/22/17 06:00 Hct 48.3 % (35.4-49) 08/22/17 06:00 MCV 85.8 fl (80-96) 08/22/17 06:00 MCH 29.4 pg (25.7-33.7) 08/22/17 06:00 MCHC 34.2 g/dl (32.0-35.9) 08/22/17 06:00 RDW 14.4 % (11.9-15.9) 08/22/17 06:00 Plt Count 198 K/MM3 (134-434) 08/22/17 06:00 MPV 10.9 fl (7.5-11.1) 08/22/17 06:00 Sodium 140 mmol/L (136-145) 08/22/17 06:00 Potassium 3.8 mmol/L (3.5-5.1) 08/22/17 06:00 Chloride 104 mmol/L (98-107) 08/22/17 06:00 Carbon Dioxide 31 mmol/L (21-32) 08/22/17 06:00 Anion Gap 5 (8-16) L 08/22/17 06:00 BUN 9 mg/dL (7-18) D 08/22/17 06:00 Creatinine 0.9 mg/dL (0.7-1.3) D 08/22/17 06:00 Creat Clearance w eGFR > 60 (>60) 08/22/17 06:00 Random Glucose 113 mg/dL (74-106) H D 08/22/17 06:00 Calcium 9.2 mg/dL (8.5-10.1) 08/22/17 06:00 Total Bilirubin 0.8 mg/dL (0.2-1.0) D 08/22/17 06:00 AST 27 U/L (15-37) D 08/22/17 06:00 ALT 37 U/L (12-78) D 08/22/17 06:00 Alkaline Phosphatase 98 U/L (45-117) 08/22/17 06:00 Total Protein 8.4 g/dl (6.4-8.2) H 08/22/17 06:00 Albumin 4.2 g/dl (3.4-5.0) 08/22/17 06:00 Urine Color Trina 08/21/17 00:00 Urine Appearance Clear 08/21/17 00:00 Urine pH 5.0 (5.0-8.0) 08/21/17 00:00 Ur Specific [place] 1.021 (1.001-1.035) 08/21/17 00:00 Urine Protein Negative (NEGATIVE) 08/21/17 00:00 Urine Glucose (UA) Negative (NEGATIVE) 08/21/17 00:00 Urine Ketones Negative (NEGATIVE) 08/21/17 00:00 Urine Blood Negative (NEGATIVE) 08/21/17 00:00 Urine Nitrite Negative (NEGATIVE) 08/21/17 00:00 Urine Bilirubin Negative (<2.0 mg/dL) 08/21/17 00:00 Urine Urobilinogen 2.0 mg/dL (0.2-1.0) 08/21/17 00:00 Ur Leukocyte Esterase Negative (NEGATIVE) 08/21/17 00:00 RPR Titer Nonreactive (NONREACTIVE) 08/22/17 06:00 Assessment: 08/23/17 14:02 WITHDRAWAL SX Plan: CONTINUE DETOX [facility] DIRECTED
[2017-08-23] MEDS: CYCLOBENZAPRINE HCL 10 MG TABLET (FP) PO SCH ×2 (14:06→22:34)
[2017-08-23] MEDS: THIAMINE HCL 100 MG TABLET (FP) PO SCH (22:34)
[2017-08-24] MEDS: CYCLOBENZAPRINE HCL 10 MG TABLET (FP) PO SCH ×3 (06:26→22:29)
[2017-08-24] MEDS: diazePAM 5 MG TABLET PO PRN (08:49)
[2017-08-24] MEDS ORDERED: METHADONE HCL 5 MG TABLET (FOR DETOX USE ONLY) PO ONE (10:00)
[2017-08-24] MEDS: cloNIDine HCL 0.1 MG TABLET PO SCH ×2 (10:36→22:29)
[2017-08-24] MEDS: PRENATAL VITAMINS W/ FOLIC ACID TABLET (FP) PO SCH (10:36)
[2017-08-24] MEDS: NICOTINE 21 MG/24 HOURS TOPICAL PATCH TD SCH (10:36)
--- NOTE | 2017-08-24 11:57 | PN ---
S Progress Note (SOAP) Subjective: BACK PAIN, SLIGHT ANXIETY AND FATIGUE. Objective: 08/24/17 12:00 Vital Signs Temperature 96.0 F L 08/24/17 09:21 Pulse Rate 55 L 08/24/17 09:21 Respiratory Rate 18 08/24/17 09:21 Blood Pressure 106/73 08/24/17 09:21 O2 Sat by Pulse Oximetry (%) Laboratory Last Values WBC 6.7 K/mm3 (4.0-10.0) 08/22/17 06:00 RBC 5.62 M/mm3 (4.00-5.60) H 08/22/17 06:00 Hgb 16.5 GM/dL (11.7-16.9) 08/22/17 06:00 Hct 48.3 % (35.4-49) 08/22/17 06:00 MCV 85.8 fl (80-96) 08/22/17 06:00 MCH 29.4 pg (25.7-33.7) 08/22/17 06:00 MCHC 34.2 g/dl (32.0-35.9) 08/22/17 06:00 RDW 14.4 % (11.9-15.9) 08/22/17 06:00 Plt Count 198 K/MM3 (134-434) 08/22/17 06:00 MPV 10.9 fl (7.5-11.1) 08/22/17 06:00 Sodium 140 mmol/L (136-145) 08/22/17 06:00 Potassium 3.8 mmol/L (3.5-5.1) 08/22/17 06:00 Chloride 104 mmol/L (98-107) 08/22/17 06:00 Carbon Dioxide 31 mmol/L (21-32) 08/22/17 06:00 Anion Gap 5 (8-16) L 08/22/17 06:00 BUN 9 mg/dL (7-18) D 08/22/17 06:00 Creatinine 0.9 mg/dL (0.7-1.3) D 08/22/17 06:00 Creat Clearance w eGFR > 60 (>60) 08/22/17 06:00 Random Glucose 113 mg/dL (74-106) H D 08/22/17 06:00 Calcium 9.2 mg/dL (8.5-10.1) 08/22/17 06:00 Total Bilirubin 0.8 mg/dL (0.2-1.0) D 08/22/17 06:00 AST 27 U/L (15-37) D 08/22/17 06:00 ALT 37 U/L (12-78) D 08/22/17 06:00 Alkaline Phosphatase 98 U/L (45-117) 08/22/17 06:00 Total Protein 8.4 g/dl (6.4-8.2) H 08/22/17 06:00 Albumin 4.2 g/dl (3.4-5.0) 08/22/17 06:00 Urine Color Trina 08/21/17 00:00 Urine Appearance Clear 08/21/17 00:00 Urine pH 5.0 (5.0-8.0) 08/21/17 00:00 Ur Specific [place] 1.021 (1.001-1.035) 08/21/17 00:00 Urine Protein Negative (NEGATIVE) 08/21/17 00:00 Urine Glucose (UA) Negative (NEGATIVE) 08/21/17 00:00 Urine Ketones Negative (NEGATIVE) 08/21/17 00:00 Urine Blood Negative (NEGATIVE) 08/21/17 00:00 Urine Nitrite Negative (NEGATIVE) 08/21/17 00:00 Urine Bilirubin Negative (<2.0 mg/dL) 08/21/17 00:00 Urine Urobilinogen 2.0 mg/dL (0.2-1.0) 08/21/17 00:00 Ur Leukocyte Esterase Negative (NEGATIVE) 08/21/17 00:00 RPR Titer Nonreactive (NONREACTIVE) 08/22/17 06:00 Assessment: 08/24/17 12:00 WITHDRAWAL SX Plan: CONTINUE DETOX NAPROSYN AND FLEXERIL ORDERED D/C STEVE
[2017-08-24] MEDS ORDERED: NAPROXEN 500 MG TABLET (FP) PO ONE (12:02)
[2017-08-24] MEDS: THIAMINE HCL 100 MG TABLET (FP) PO SCH (22:29)
[2017-08-24] MEDS: NAPROXEN 500 MG TABLET (FP) PO SCH (22:29)
[2017-08-24] MEDS: MELATONIN 5 MG TABLETS PO PRN (22:30)
[2017-08-25] MEDS: CYCLOBENZAPRINE HCL 10 MG TABLET (FP) PO SCH ×3 (06:10→22:21)
[2017-08-25] MEDS ORDERED: METHADONE HCL 10 MG TABLET (FOR DETOX USE ONLY) PO ONE (10:00)
[2017-08-25] MEDS: PRENATAL VITAMINS W/ FOLIC ACID TABLET (FP) PO SCH (10:28)
[2017-08-25] MEDS: NAPROXEN 500 MG TABLET (FP) PO SCH ×2 (10:28→22:21)
[2017-08-25] MEDS: NICOTINE 21 MG/24 HOURS TOPICAL PATCH TD SCH (10:28)
[2017-08-25] MEDS: cloNIDine HCL 0.1 MG TABLET PO SCH ×2 (10:30→22:23)
--- NOTE | 2017-08-25 12:05 | PN ---
S Progress Note (SOAP) Subjective: ANXIETY,NASAL CONGESTION. REPORTS MEDS EFFECTIVE FOR BACK PAIN Objective: 08/25/17 12:04 Vital Signs Temperature 97.3 F L 08/25/17 09:41 Pulse Rate 61 08/25/17 09:41 Respiratory Rate 20 08/25/17 09:41 Blood Pressure 121/75 08/25/17 09:41 O2 Sat by Pulse Oximetry (%) Laboratory Last Values WBC 6.7 K/mm3 (4.0-10.0) 08/22/17 06:00 RBC 5.62 M/mm3 (4.00-5.60) H 08/22/17 06:00 Hgb 16.5 GM/dL (11.7-16.9) 08/22/17 06:00 Hct 48.3 % (35.4-49) 08/22/17 06:00 MCV 85.8 fl (80-96) 08/22/17 06:00 MCH 29.4 pg (25.7-33.7) 08/22/17 06:00 MCHC 34.2 g/dl (32.0-35.9) 08/22/17 06:00 RDW 14.4 % (11.9-15.9) 08/22/17 06:00 Plt Count 198 K/MM3 (134-434) 08/22/17 06:00 MPV 10.9 fl (7.5-11.1) 08/22/17 06:00 Sodium 140 mmol/L (136-145) 08/22/17 06:00 Potassium 3.8 mmol/L (3.5-5.1) 08/22/17 06:00 Chloride 104 mmol/L (98-107) 08/22/17 06:00 Carbon Dioxide 31 mmol/L (21-32) 08/22/17 06:00 Anion Gap 5 (8-16) L 08/22/17 06:00 BUN 9 mg/dL (7-18) D 08/22/17 06:00 Creatinine 0.9 mg/dL (0.7-1.3) D 08/22/17 06:00 Creat Clearance w eGFR > 60 (>60) 08/22/17 06:00 Random Glucose 113 mg/dL (74-106) H D 08/22/17 06:00 Calcium 9.2 mg/dL (8.5-10.1) 08/22/17 06:00 Total Bilirubin 0.8 mg/dL (0.2-1.0) D 08/22/17 06:00 AST 27 U/L (15-37) D 08/22/17 06:00 ALT 37 U/L (12-78) D 08/22/17 06:00 Alkaline Phosphatase 98 U/L (45-117) 08/22/17 06:00 Total Protein 8.4 g/dl (6.4-8.2) H 08/22/17 06:00 Albumin 4.2 g/dl (3.4-5.0) 08/22/17 06:00 Urine Color Trina 08/21/17 00:00 Urine Appearance Clear 08/21/17 00:00 Urine pH 5.0 (5.0-8.0) 08/21/17 00:00 Ur Specific [place] 1.021 (1.001-1.035) 08/21/17 00:00 Urine Protein Negative (NEGATIVE) 08/21/17 00:00 Urine Glucose (UA) Negative (NEGATIVE) 08/21/17 00:00 Urine Ketones Negative (NEGATIVE) 08/21/17 00:00 Urine Blood Negative (NEGATIVE) 08/21/17 00:00 Urine Nitrite Negative (NEGATIVE) 08/21/17 00:00 Urine Bilirubin Negative (<2.0 mg/dL) 08/21/17 00:00 Urine Urobilinogen 2.0 mg/dL (0.2-1.0) 08/21/17 00:00 Ur Leukocyte Esterase Negative (NEGATIVE) 08/21/17 00:00 RPR Titer Nonreactive (NONREACTIVE) 08/22/17 06:00 HIV 1&2 Antibody Screen Negative 08/24/17 06:00 HIV P24 Antigen Negative 08/24/17 06:00 Assessment: 08/25/17 12:05 WITHDRAWAL SX Plan: CONTINUE DETOX
[2017-08-25] MEDS: THIAMINE HCL 100 MG TABLET (FP) PO SCH (22:21)
[2017-08-26] MEDS: CYCLOBENZAPRINE HCL 10 MG TABLET (FP) PO SCH (05:59)
[2017-08-26] MEDS ORDERED: METHADONE HCL 5 MG TABLET (FOR DETOX USE ONLY) PO ONE (06:00)
[2017-08-26 06:55] VITALS: BP 118/69; PULSE 47; TEMP 96.2
--- NOTE | 2017-08-26 18:00 | PN ---
BHS Progress Note (SOAP) Subjective: Patient denies current Detox symptoms and reports that he feels well overall. Objective: PATIENT A & O X 3, OBSERVED AMBULATING ON UNIT. NO ACUTE DISTRESS. 08/26/17 18:00 Vital Signs Temperature 96.2 F L 08/26/17 06:54 Pulse Rate 47 L 08/26/17 06:54 Respiratory Rate 18 08/26/17 06:54 Blood Pressure 118/69 08/26/17 06:54 O2 Sat by Pulse Oximetry (%) Laboratory Tests 08/21/17 08/22/17 08/22/17 00:00 06:00 06:00 WBC 6.7 RBC 5.62 H Hgb 16.5 Hct 48.3 MCV 85.8 MCH 29.4 MCHC 34.2 RDW 14.4 Plt Count 198 MPV 10.9 Sodium 140 Potassium 3.8 Chloride 104 Carbon Dioxide 31 Anion Gap 5 L BUN 9 D Creatinine 0.9 D Creat Clearance w eGFR > 60 Random Glucose 113 H D Calcium 9.2 Total Bilirubin 0.8 D AST 27 D ALT 37 D Alkaline Phosphatase 98 Total Protein 8.4 H Albumin 4.2 Urine Color [place] Urine Appearance Clear Urine pH 5.0 Ur Specific [place] 1.021 Urine Protein Negative Urine Glucose (UA) Negative Urine Ketones Negative Urine Blood Negative Urine Nitrite Negative Urine Bilirubin Negative Urine Urobilinogen 2.0 Ur Leukocyte Esterase Negative RPR Titer HIV 1&2 Antibody Screen HIV P24 Antigen 08/22/17 08/24/17 06:00 06:00 WBC RBC Hgb Hct MCV MCH MCHC RDW Plt Count MPV Sodium Potassium Chloride Carbon Dioxide Anion Gap BUN Creatinine Creat Clearance w eGFR Random Glucose Calcium Total Bilirubin AST ALT Alkaline Phosphatase Total Protein Albumin Urine Color Urine Appearance Urine pH Ur Specific [place] Urine Protein Urine Glucose (UA) Urine Ketones Urine Blood Urine Nitrite Urine Bilirubin Urine Urobilinogen Ur Leukocyte Esterase RPR Titer Nonreactive HIV 1&2 Antibody Screen Negative HIV P24 Antigen Negative LABS NOTED. Assessment: 08/26/17 18:00 COMPLETION OF DETOX REGIMEN. Plan: SCHEDULED FOR DISCHARGE FROM DETOX UNIT TODAY.
--- NOTE | 2017-08-26 18:03 | DS ---
[facility] Detox Discharge Summary Admission Date: 08/21/17 Discharge Date: 08/26/17 - History Present History: Cannabis Dependence, Opioid Dependence Additional Comments: PATIENT ADVISED TO CONSIDER LOCAL 12-STEP / NA OUTPATIENT SUPPORT GROUP PROGRAMS FOR AFTERCARE. PATIENT WAS DISCHARGED FROM DETOX UNIT IN STABLE MEDICAL CONDITION. Pertinent Past History: Hep C (Treated), Depression, History of Epidural Abscess (Embolic) of Spinal Cord, GERD, Low Back Pain. - Physical Exam Results Vital Signs: Vital Signs Temperature 96.2 F L 08/26/17 06:54 Pulse Rate 47 L 08/26/17 06:54 Respiratory Rate 18 08/26/17 06:54 Blood Pressure 118/69 08/26/17 06:54 O2 Sat by Pulse Oximetry (%) Pertinent Admission Physical Exam Findings: WITHDRAWAL SYMPTOMS. Laboratory Tests 08/21/17 08/22/17 08/22/17 00:00 06:00 06:00 WBC 6.7 RBC 5.62 H Hgb 16.5 Hct 48.3 MCV 85.8 MCH 29.4 MCHC 34.2 RDW 14.4 Plt Count 198 MPV 10.9 Sodium 140 Potassium 3.8 Chloride 104 Carbon Dioxide 31 Anion Gap 5 L BUN 9 D Creatinine 0.9 D Creat Clearance w eGFR > 60 Random Glucose 113 H D Calcium 9.2 Total Bilirubin 0.8 D AST 27 D ALT 37 D Alkaline Phosphatase 98 Total Protein 8.4 H Albumin 4.2 Urine Color [place] Urine Appearance Clear Urine pH 5.0 Ur Specific [place] 1.021 Urine Protein Negative Urine Glucose (UA) Negative Urine Ketones Negative Urine Blood Negative Urine Nitrite Negative Urine Bilirubin Negative Urine Urobilinogen 2.0 Ur Leukocyte Esterase Negative RPR Titer HIV 1&2 Antibody Screen HIV P24 Antigen 08/22/17 08/24/17 06:00 06:00 WBC RBC Hgb Hct MCV MCH MCHC RDW Plt Count MPV Sodium Potassium Chloride Carbon Dioxide Anion Gap BUN Creatinine Creat Clearance w eGFR Random Glucose Calcium Total Bilirubin AST ALT Alkaline Phosphatase Total Protein Albumin Urine Color Urine Appearance Urine pH Ur Specific [place] Urine Protein Urine Glucose (UA) Urine Ketones Urine Blood Urine Nitrite Urine Bilirubin Urine Urobilinogen Ur Leukocyte Esterase RPR Titer Nonreactive HIV 1&2 Antibody Screen Negative HIV P24 Antigen Negative LABS NOTED. - Treatment Hospital Course: Detox Protocol Followed, Detoxed Safely, Responded well, Discharged Condition Good Patient has Accepted a Rehab Referral to: PT ADVISED TO CONSIDER LOCAL 12-STEP/ NA OUTPATIENT SUPPORT GROUPS. 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 (4) GERD (gastroesophageal reflux disease) Status: Chronic Qualifiers: Esophagitis presence: esophagitis presence not specified Qualified Code(s) : K21.9 - Gastro-esophageal reflux disease without esophagitis (5) Hepatitis C Status: Chronic Qualifiers: Viral hepatitis chronicity: chronic Hepatic coma status: without hepatic coma Qualified Code(s): B18.2 - Chronic viral hepatitis C (6) Low back pain Status: Chronic Qualifiers: Chronicity: chronic Back pain laterality: midline Sciatica presence: without sciatica Qualified Code(s): M54.5 - Low back pain; G89.29 - Other chronic pain; G89.29 - Other chronic pain (7) IV drug abuse Status: Acute - AMA Did Patient Leave Against Medical Advice: No
== END 2017-08-26 08:31 | disposition home or self-care (01) | DRG 776 ==
LOC: YASAS 08:59 → Y3N 11:58
PROVIDERS: ADMIT Internal Medicine; ATTEND Internal Medicine
PROC: HZ2ZZZZ Detoxification Services for Substance Abuse Treatment (ICD-10-PCS; principal; 2017-08-21)
DX: F12.20 Cannabis dependence, uncomplicated (principal); F32.9 Major depressive disorder, single episode, unspecified; B18.2 Chronic viral hepatitis C; J45.909 Unspecified asthma, uncomplicated
CPT/HCPCS: 36415; 80053; 81003; 85027; 86593; 87389; 90688; 93005; 93010; G0008; J0735

== ENCOUNTER 2018-04-09 17:12 | Inpatient (IN) | payer SELFPAY ==
[2018-04-09 19:11] VITALS: BMI 22.1
--- NOTE | 2018-04-09 21:12 | HP ---
COWS - Scale Resting Pulse: 1= [place] 81-100 Sweatin= Chills/Flushing Restless Observation: 3= Extraneous Movement Pupil Size: 1= Pupils >than Normal Bone or Joint Aches: 2= Severe Diffuse Aches Runny Nose/ Eye Tearin= Runny Nose/Eyes GI Upset > 30mins: 1= Stomach Cramp Tremor Observation: 2= Slight Tremor Visible Yawning Observation: 0= None Anxiety or Irritability: 2=Irritable/Anxious Goose Flesh Skin: 0=Smooth Skin COWS Score: 15 CIWA Score - Admission Criteria OASAS Guidelines: Admission for Medically Managed Detox: Requires at least one of the followin. CIWA greater than 12 2. Seizures within the past 24 hours 3. Delirium tremens within the past 24 hours 4. Hallucinations within the past 24 hours 5. Acute intervention needed for co occurring medical disorder 6. Acute intervention needed for co occurring psychiatric disorder 7. Severe withdrawal that cannot be handled at a lower level of care (continued vomiting, continued diarrhea, abnormal vital signs) requiring intravenous medication and/or fluids 8. Admission ROS [facility] - [facility] Chief Complaint: chief complaint: "back pain" and "heroin detox" Allergies/Adverse Reactions: Allergies Allergy/AdvReac Type Severity Reaction Status Date / Time cefepime Allergy Severe Verified 04/09/18 19:57 Penicillins Allergy Unknown Verified 04/09/18 19:57 History of Present Illness: this 52 years old male with long h/o heroin and marijuana dependence,seeking detox. Completed detox in 08/2017- did well for a few months and then relapsed again. Uses about 15-20 bags of IV heroin- both arms. Used to be in methadone program distant past-but left. Last use yesterday. Uses about $20 of THC per day No meds. hepatitis c treated smokes 10 cigarettes/day Utox: pos for MOP DUR/ISTOP: no controlled substances - Ebola screening Have you traveled outside of the country in the last 21 days: No (N) Have you had contact with anyone from an Ebola affected area: No Have you been sick,other than usual withdrawal symptoms: No Do you have a fever: No - Review of Systems Constitutional: No Symptoms Reported EENT: reports: No Symptoms Reported Respiratory: reports: No Symptoms reported Cardiac: reports: No Symptoms Reported GI: reports: No Symptoms Reported : reports: No Symptoms Reported Musculoskeletal: reports: No Symptoms Reported Integumentary: reports: No Symptoms Reported Neuro: reports: No Symptoms reported Endocrine: reports: No Symptoms Reported Hematology: reports: No Symptoms Reported Psychiatric: reports: No Sypmtoms Reported Patient History - Patient Medical History Hx Anemia: No Hx Asthma: Yes (on albuteol inhaler) Hx Chronic Obstructive Pulmonary Disease (COPD): No Hx Cancer: No Hx Cardiac Disorders: No Hx Congestive Heart Failure: No Hx Hypertension: No Hx Hypercholesterolemia: No Hx Pacemaker: No HX Cerebrovascular Accident: No Hx Seizures: No Hx Dementia: No Hx Diabetes: No Hx Gastrointestinal Disorders: No Hx Liver Disease: No Hx Genitourinary Disorders: No Hx Sexually Transmitted Disorders: No Hx Renal Disease (ESRD): No Hx Thyroid Disease: No Hx Human Immunodeficiency Virus (HIV): No (last 2015) Hx Hepatitis C: Yes (received tx. ) Hx Depression: No Hx Suicide Attempt: No Hx Bipolar Disorder: No Hx Schizophrenia: No - Patient Surgical History Past Surgical History: No Hx Neurologic Surgery: No Hx Cataract Extraction: No Hx Cardiac Surgery: No Hx Lung Surgery: No Hx Breast Surgery: No Hx Breast Biopsy: No Hx Abdominal Surgery: No Hx Appendectomy: No Hx Cholecystectomy: No Hx Genitourinary Surgery: No Hx Section: No Hx Orthopedic Surgery: Yes (R upper arm with injury as a child) Other Surgical History: Abscess to lower back in 02/19 Anesthesia Reaction: No - PPD History Previous Implant?: Yes Date: 07/28/16 - Smoking Cessation Smoking history: Current every day smoker Have you smoked in the past 12 months: Yes Aproximately how many cigarettes per day: 10 If you are a former smoker, when did you quit?: 25 days as of 03/28/15 Hx Chewing Tobacco Use: No Initiated information on smoking cessation: Yes 'Breaking Loose' booklet given: 04/09/18 - Substance & Tx. History Hx Alcohol Use: No Substance Use Type: Heroin, Marijuana - Substances Abused Heroin Route: Injection Frequency: Daily Amount used: 20 BAGS Age of first use: 23 Date of Last Use: 04/08/18 thc Route: Smoking Family Disease History - Family Disease History Family Disease History: Diabetes: Mother (HTN), Heart Disease: Father ( of MIat 93), Other: Brother (3brother healthy and living), Sister (1 sister healthy and living) Admission Physical Exam [facility] - Vital Signs Vital Signs: Vital Signs - 24 hr 04/09/18 19:09 Temperature 97.1 F L Pulse Rate 60 Respiratory 18 Rate Blood Pressure 111/66 - Physical General Appearance: Yes: Within Normal Limits HEENTM: Yes: Within Normal Limits, EOMI, Hearing grossly Normal, CESARIO Respiratory: Yes: Within Normal Limits, Lungs Clear Neck: Yes: Within Normal Limits Cardiology: Yes: Within Normal Limits Abdominal: Yes: Within Normal Limits, Normal Bowel Sounds, Non Tender Genitourinary: Yes: Within Normal Limits Back: Yes: Within Normal Limits Musculoskeletal: Yes: Within Normal Limits Extremities: Yes: Within Normal Limits, Normal Inspection Neurological: Yes: Within Normal Limits, video editor II-XII NML intact, Fully Oriented Integumentary: Yes: Within Normal Limits, Track [place], Other (R upper arm scar) - Diagnostic (1) Asthma Current Visit: Yes Status: Acute (2) History of heroin abuse Current Visit: No Status: Acute (3) Nicotine dependence Current Visit: No Status: Acute Qualifiers: Nicotine product type: cigarettes Substance use status: in withdrawal Qualified Code(s): F17.213 - Nicotine dependence, cigarettes, with withdrawal (4) Opioid dependence with withdrawal Current Visit: No Status: Acute BHS Breath Alcohol Content Breath Alcohol Content: 0 Urine Drug Screen - Results Drug Screen Negative: No Urine Drug Screen Results: THC-Marijuana, OPI-Opiates, FEN-Fentanyl
[2018-04-09] MEDS ORDERED: MAGNESIUM CITRATE 300 ML BOTTLE PO PRN (21:38)
[2018-04-09] MEDS ORDERED: MAG HYDROX/AL HYDROX/SIMETH 30 ML UNIT-DOSE CUP PO PRN (21:38)
[2018-04-09] MEDS ORDERED: LOPERAMIDE HCL 2 MG CAPSULE PO PRN (21:38)
[2018-04-09] MEDS ORDERED: P-EPHED 60MG/TRIPROLIDI 2.5MG TABLET PO PRN (21:38)
[2018-04-09] MEDS ORDERED: IBUPROFEN 400 MG TABLET (FP) PO PRN (21:38)
[2018-04-09] MEDS ORDERED: guaiFENesin/D-METHORPHAN HB 10 ML UNIT-DOSE CUPS PO PRN (21:38)
[2018-04-09] MEDS ORDERED: MENTHOL/PHENOL 1 EACH UD MM PRN (21:38)
[2018-04-09] MEDS ORDERED: ACETAMINOPHEN 325 MG TABLET (FP) PO PRN (21:38)
[2018-04-09] MEDS ORDERED: MAGNESIUM HYDROX 2400MG/30ML ORAL SUSPENSION 30 ML CUP PO PRN (21:38)
[2018-04-09] MEDS ORDERED: METHADONE HCL 10 MG TABLET (FOR DETOX USE ONLY) PO ONE ×2 (21:40→23:00)
[2018-04-09] MEDS ORDERED: cloNIDine HCL 0.1 MG TABLET PO PRN (21:41)
[2018-04-09] MEDS ORDERED: ALBUTEROL SO4 8 GM HFA INHALER IH PRN (21:42)
[2018-04-09] MEDS ORDERED: MELATONIN 5 MG TABLETS PO PRN (22:00)
[2018-04-09] MEDS: diazePAM 5 MG TABLET PO PRN (22:57)
[2018-04-09] MEDS: THIAMINE HCL 100 MG TABLET (FP) PO SCH (23:02)
[2018-04-10] MEDS ORDERED: METHADONE HCL 10 MG TABLET (FOR DETOX USE ONLY) PO ONE (10:00)
[2018-04-10 10:02] LABS: ALBUMIN 3.1 g/dl (3.4-5.0); ALK PHOS 86 U/L (45-117); ANION GAP 7 MMOL/L (8-16); BILIRUBIN,TOTAL 0.3 mg/dL (0.2-1); BLOOD UREA NITROGEN 13 mg/dL (7-18); CALCIUM 8.3 mg/dL (8.5-10.1); CHLORIDE 104 mmol/L (98-107); CO2 31 mmol/L (21-32); CREATININE 0.8 mg/dL (0.55-1.3); GLUCOSE,RANDOM 77 mg/dL (74-106); POTASSIUM 4.3 mmol/L (3.5-5.1); SGOT/AST 32 U/L (15-37); SGPT/ALT 47 U/L (13-61); SODIUM 142 mmol/L (136-145); TOT PROT 6.5 g/dl (6.4-8.2)
[2018-04-10 10:04] LABS: HEMATOCRIT 41.1 % (35.4-49); HEMOGLOBIN 13.5 GM/dL (11.7-16.9); MCHC 32.9 g/dl (32.0-35.9); MEAN CELL VOLUME 85.1 fl (80-96); MEAN PLT VOLUME 9.2 fl (7.5-11.1); PLATELET COUNT 168 K/MM3 (134-434); RBC 4.83 M/mm3 (4.00-5.60); RDW 14.4 % (11.9-15.9); WHITE BLOOD COUNT 4.6 K/mm3 (4.0-10.0)
[2018-04-10] MEDS: NICOTINE 14 MG/24 HOURS TOPICAL PATCH TD SCH (10:28)
[2018-04-10] MEDS: PRENATAL VITAMINS W/ FOLIC ACID TABLET (FP) PO SCH (10:28)
[2018-04-10] MEDS: diazePAM 5 MG TABLET PO PRN ×3 (10:28→22:09)
--- NOTE | 2018-04-10 13:55 | PN ---
BHS COWS - Scale Resting Pulse: 1= [place] 81-100 Sweatin= Chills/Flushing Restless Observation: 1= Difficult to Sit Still Pupil Size: 0= Normal to Room Light Bone or Joint Aches: 1= Mild Discomfort Runny Nose/ Eye Tearin= Nasal Congestion GI Upset > 30mins: 1= Stomach Cramp Tremor Observation of Outstretched Hands: 1= Tremor [place], Not Seen Yawning Observation: 0= None Anxiety or Irritability: 1=Feels Anxious/Irritable Goose Flesh Skin: 0=Smooth Skin COWS Score: 8 BHS Progress Note (SOAP) Subjective: day #2 of heroin detox- says feeling good, still has some back pain O: Vital Signs - 24 hr 04/09/18 04/10/18 04/10/18 19:09 00:06 00:30 Temperature 97.1 F L 97.1 F L Pulse Rate 60 58 L Respiratory 18 18 16 Rate Blood Pressure 111/66 113/73 04/10/18 04/10/18 03:30 06:21 Temperature 97 F L Pulse Rate 48 L Respiratory 18 18 Rate Blood Pressure 120/70 Laboratory Tests 04/10/18 04/10/18 04/10/18 07:00 07:00 07:00 WBC 4.6 RBC 4.83 Hgb 13.5 Hct 41.1 MCV 85.1 MCH 28.0 MCHC 32.9 RDW 14.4 Plt Count 168 MPV 9.2 D Sodium 142 Potassium 4.3 Chloride 104 Carbon Dioxide 31 Anion Gap 7 L BUN 13 Creatinine 0.8 Creat Clearance w eGFR > 60 Random Glucose 77 Calcium 8.3 L Total Bilirubin 0.3 AST 32 ALT 47 Alkaline Phosphatase 86 Total Protein 6.5 Albumin 3.1 L RPR Titer HIV 1&2 Antibody Screen Negative HIV P24 Antigen Negative 04/10/18 07:00 WBC RBC Hgb Hct MCV MCH MCHC RDW Plt Count MPV Sodium Potassium Chloride Carbon Dioxide Anion Gap BUN Creatinine Creat Clearance w eGFR Random Glucose Calcium Total Bilirubin AST ALT Alkaline Phosphatase Total Protein Albumin RPR Titer Nonreactive HIV 1&2 Antibody Screen HIV P24 Antigen ass/plan: continue opioid detox protocol, pt doing well. d/w pt exercises for back pain and prn tylneol and NSAID's.
[2018-04-10] MEDS: THIAMINE HCL 100 MG TABLET (FP) PO SCH (22:09)
[2018-04-11] MEDS ORDERED: METHADONE HCL 5 MG TABLET (FOR DETOX USE ONLY) PO ONE (10:00)
[2018-04-11] MEDS ORDERED: ONDANSETRON *ODT* 4 MG TABLET SL PRN (10:18)
[2018-04-11] MEDS: diazePAM 5 MG TABLET PO PRN ×2 (10:49→21:24)
[2018-04-11] MEDS: PRENATAL VITAMINS W/ FOLIC ACID TABLET (FP) PO SCH (10:50)
[2018-04-11] MEDS: NICOTINE 14 MG/24 HOURS TOPICAL PATCH TD SCH (10:50)
--- NOTE | 2018-04-11 15:42 | PN ---
BHS COWS - Scale Resting Pulse: 0= [place] 80 or Below Sweatin= Chills/Flushing Restless Observation: 3= Extraneous Movement Pupil Size: 1= Pupils >than Normal Bone or Joint Aches: 2= Severe Diffuse Aches Runny Nose/ Eye Tearin= Runny Nose/Eyes GI Upset > 30mins: 3= Vomiting/Diarrhea Tremor Observation of Outstretched Hands: 2= Slight Tremor Visible Yawning Observation: 1= 1-2x During Session Anxiety or Irritability: 2=Irritable/Anxious Goose Flesh Skin: 0=Smooth Skin COWS Score: 17 BHS Progress Note (SOAP) Subjective: Back pain, vomiting, sweating, interrupted sleep Objective: 04/11/18 15:41 Last Vital Signs Temp Pulse Resp BP Pulse Ox 96.4 F L 57 L 18 113/63 04/11/18 13:53 04/11/18 13:53 04/11/18 13:53 04/11/18 13:53 Laboratory Tests 04/10/18 04/10/18 04/10/18 07:00 07:00 07:00 WBC 4.6 RBC 4.83 Hgb 13.5 Hct 41.1 MCV 85.1 MCH 28.0 MCHC 32.9 RDW 14.4 Plt Count 168 MPV 9.2 D Sodium 142 Potassium 4.3 Chloride 104 Carbon Dioxide 31 Anion Gap 7 L BUN 13 Creatinine 0.8 Creat Clearance w eGFR > 60 Random Glucose 77 Calcium 8.3 L Total Bilirubin 0.3 AST 32 ALT 47 Alkaline Phosphatase 86 Total Protein 6.5 Albumin 3.1 L RPR Titer HIV 1&2 Antibody Screen Negative HIV P24 Antigen Negative 04/10/18 07:00 WBC RBC Hgb Hct MCV MCH MCHC RDW Plt Count MPV Sodium Potassium Chloride Carbon Dioxide Anion Gap BUN Creatinine Creat Clearance w eGFR Random Glucose Calcium Total Bilirubin AST ALT Alkaline Phosphatase Total Protein Albumin RPR Titer Nonreactive HIV 1&2 Antibody Screen HIV P24 Antigen Labs reviewed Assessment: 04/11/18 15:41 Withdrawal symptoms Plan: Continue detox Encouraged PO water intake
[2018-04-11] MEDS: THIAMINE HCL 100 MG TABLET (FP) PO SCH (21:24)
[2018-04-12] MEDS ORDERED: METHADONE HCL 5 MG TABLET (FOR DETOX USE ONLY) PO ONE (10:00)
[2018-04-12] MEDS: NICOTINE 14 MG/24 HOURS TOPICAL PATCH TD SCH (10:09)
[2018-04-12] MEDS: PRENATAL VITAMINS W/ FOLIC ACID TABLET (FP) PO SCH (10:10)
--- NOTE | 2018-04-12 15:28 | PN ---
BHS Progress Note (SOAP) Subjective: Sweating, interrupted sleep Objective: 04/12/18 15:24 Last Vital Signs Temp Pulse Resp BP Pulse Ox 99.6 F 55 L 18 125/80 04/12/18 09:00 04/12/18 09:00 04/12/18 09:00 04/12/18 09:00 Laboratory Tests 04/10/18 04/10/18 04/10/18 07:00 07:00 07:00 WBC 4.6 RBC 4.83 Hgb 13.5 Hct 41.1 MCV 85.1 MCH 28.0 MCHC 32.9 RDW 14.4 Plt Count 168 MPV 9.2 D Sodium 142 Potassium 4.3 Chloride 104 Carbon Dioxide 31 Anion Gap 7 L BUN 13 Creatinine 0.8 Creat Clearance w eGFR > 60 Random Glucose 77 Calcium 8.3 L Total Bilirubin 0.3 AST 32 ALT 47 Alkaline Phosphatase 86 Total Protein 6.5 Albumin 3.1 L RPR Titer HIV 1&2 Antibody Screen Negative HIV P24 Antigen Negative 04/10/18 07:00 WBC RBC Hgb Hct MCV MCH MCHC RDW Plt Count MPV Sodium Potassium Chloride Carbon Dioxide Anion Gap BUN Creatinine Creat Clearance w eGFR Random Glucose Calcium Total Bilirubin AST ALT Alkaline Phosphatase Total Protein Albumin RPR Titer Nonreactive HIV 1&2 Antibody Screen HIV P24 Antigen Labs reviewed Assessment: 04/12/18 15:25 Withdrawal symptoms Plan: Continue detox Encouraged PO water intake
[2018-04-12 21:32] LABS: URINE APPEARANCE CLEAR; URINE BILIRUBIN NEGATIVE (<2.0 mg/dL); URINE COLOR YELLOW; URINE GLUCOSE (UA) NEGATIVE (NEGATIVE); URINE KETONE NEGATIVE (NEGATIVE); URINE LEUK ESTERASE NEGATIVE (NEGATIVE); URINE NITRITE NEGATIVE (NEGATIVE); URINE PROTEIN NEGATIVE (NEGATIVE); URINE UROBILINOGEN NEGATIVE mg/dL (0.2-1.0)
[2018-04-12] MEDS: THIAMINE HCL 100 MG TABLET (FP) PO SCH (22:16)
[2018-04-13] MEDS: NICOTINE 14 MG/24 HOURS TOPICAL PATCH TD SCH (09:56)
[2018-04-13] MEDS: hydrOXYzine PAMOATE 50 MG CAPSULE (FP) PO PRN ×2 (09:56→22:09)
[2018-04-13] MEDS: PRENATAL VITAMINS W/ FOLIC ACID TABLET (FP) PO SCH (09:56)
[2018-04-13] MEDS ORDERED: METHADONE HCL 10 MG TABLET (FOR DETOX USE ONLY) PO ONE (10:00)
--- NOTE | 2018-04-13 15:23 | PN ---
S Progress Note (SOAP) Subjective: Denies any symptoms. Patient is anxious, restless. Patient requesting to join MMTP program here at [facility]. Patient referred to speak with Dr. Bailey in Methadone clinic who spoke with patient today and provided him the necessary information. Objective: 04/13/18 15:20 Last Vital Signs Temp Pulse Resp BP Pulse Ox 97.5 F L 62 18 110/70 04/13/18 09:30 04/13/18 09:30 04/13/18 09:30 04/13/18 09:30 Laboratory Tests 04/10/18 04/10/18 04/10/18 07:00 07:00 07:00 WBC 4.6 RBC 4.83 Hgb 13.5 Hct 41.1 MCV 85.1 MCH 28.0 MCHC 32.9 RDW 14.4 Plt Count 168 MPV 9.2 D Sodium 142 Potassium 4.3 Chloride 104 Carbon Dioxide 31 Anion Gap 7 L BUN 13 Creatinine 0.8 Creat Clearance w eGFR > 60 Random Glucose 77 Calcium 8.3 L Total Bilirubin 0.3 AST 32 ALT 47 Alkaline Phosphatase 86 Total Protein 6.5 Albumin 3.1 L Urine Color Urine Appearance Urine pH Ur Specific [place] Urine Protein Urine Glucose (UA) Urine Ketones Urine Blood Urine Nitrite Urine Bilirubin Urine Urobilinogen Ur Leukocyte Esterase RPR Titer HIV 1&2 Antibody Screen Negative HIV P24 Antigen Negative 04/10/18 04/12/18 07:00 18:00 WBC RBC Hgb Hct MCV MCH MCHC RDW Plt Count MPV Sodium Potassium Chloride Carbon Dioxide Anion Gap BUN Creatinine Creat Clearance w eGFR Random Glucose Calcium Total Bilirubin AST ALT Alkaline Phosphatase Total Protein Albumin Urine Color Yellow Urine Appearance Clear Urine pH 5.0 Ur Specific [place] 1.020 Urine Protein Negative Urine Glucose (UA) Negative Urine Ketones Negative Urine Blood Negative Urine Nitrite Negative Urine Bilirubin Negative Urine Urobilinogen Negative Ur Leukocyte Esterase Negative RPR Titer Nonreactive HIV 1&2 Antibody Screen HIV P24 Antigen Labs reviewed Assessment: 04/13/18 15:22 Withdrawal symptoms Plan: Continue detox Encouraged PO water intake
[2018-04-13 21:46] VITALS: PULSE 55
[2018-04-13] MEDS: THIAMINE HCL 100 MG TABLET (FP) PO SCH (22:09)
[2018-04-14] MEDS ORDERED: METHADONE HCL 5 MG TABLET (FOR DETOX USE ONLY) PO ONE (06:00)
[2018-04-14 06:18] VITALS: BP 106/65; TEMP 97
--- NOTE | 2018-04-14 12:00 | DS ---
[facility] Detox Discharge Summary Admission Date: 04/09/18 Discharge Date: 04/14/18 - History Present History: Cannabis Dependence, Opioid Dependence Pertinent Past History: PLEASE SEE DX BELOW - Physical Exam Results Vital Signs: Vital Signs Temperature 97 F L 04/14/18 06:17 Pulse Rate 55 L 04/14/18 06:17 Respiratory Rate 18 04/14/18 06:17 Blood Pressure 106/65 04/14/18 06:17 O2 Sat by Pulse Oximetry (%) Pertinent Admission Physical Exam Findings: WITHDRAWAL SX Laboratory Tests 04/10/18 04/10/18 04/10/18 07:00 07:00 07:00 WBC 4.6 RBC 4.83 Hgb 13.5 Hct 41.1 MCV 85.1 MCH 28.0 MCHC 32.9 RDW 14.4 Plt Count 168 MPV 9.2 D Sodium 142 Potassium 4.3 Chloride 104 Carbon Dioxide 31 Anion Gap 7 L BUN 13 Creatinine 0.8 Creat Clearance w eGFR > 60 Random Glucose 77 Calcium 8.3 L Total Bilirubin 0.3 AST 32 ALT 47 Alkaline Phosphatase 86 Total Protein 6.5 Albumin 3.1 L Urine Color Urine Appearance Urine pH Ur Specific [place] Urine Protein Urine Glucose (UA) Urine Ketones Urine Blood Urine Nitrite Urine Bilirubin Urine Urobilinogen Ur Leukocyte Esterase RPR Titer HIV 1&2 Antibody Screen Negative HIV P24 Antigen Negative 04/10/18 04/12/18 07:00 18:00 WBC RBC Hgb Hct MCV MCH MCHC RDW Plt Count MPV Sodium Potassium Chloride Carbon Dioxide Anion Gap BUN Creatinine Creat Clearance w eGFR Random Glucose Calcium Total Bilirubin AST ALT Alkaline Phosphatase Total Protein Albumin Urine Color Yellow Urine Appearance Clear Urine pH 5.0 Ur Specific [place] 1.020 Urine Protein Negative Urine Glucose (UA) Negative Urine Ketones Negative Urine Blood Negative Urine Nitrite Negative Urine Bilirubin Negative Urine Urobilinogen Negative Ur Leukocyte Esterase Negative RPR Titer Nonreactive HIV 1&2 Antibody Screen HIV P24 Antigen - Treatment Hospital Course: Detox Protocol Followed, Detoxed Safely, Responded well, Discharged Condition Good - Medication Discharge Medications: Ambulatory Orders Albuterol Sulfate Inhaler - [Ventolin Hfa Inhaler -] See Protocol PO QID PRN Ibuprofen 800 mg PO TID PRN #30 tablet 12/17/17 - Diagnosis (1) GERD (gastroesophageal reflux disease) Status: Chronic Qualifiers: Esophagitis presence: esophagitis presence not specified Qualified Code(s) : K21.9 - Gastro-esophageal reflux disease without esophagitis (2) Hepatitis C Status: Chronic Qualifiers: Viral hepatitis chronicity: chronic Hepatic coma status: without hepatic coma Qualified Code(s): B18.2 - Chronic viral hepatitis C - AMA Did Patient Leave Against Medical Advice: No
--- NOTE | 2018-04-14 12:00 | PN ---
BHS Progress Note (SOAP) Subjective: DETOX COMPLETED. ALERT O X 3. NAD. PT WILL FOLLOW UP WITH PRIMARY CARE WITH PMD , DR CYR AT [address] [place] [address] FOR MEDICAL MANAGEMENT. Objective: 04/14/18 11:59 Vital Signs 04/14/18 06:17 Temperature 97 F L Pulse Rate 55 L Respiratory 18 Rate Blood Pressure 106/65 Laboratory Tests 04/10/18 04/10/18 04/10/18 07:00 07:00 07:00 WBC 4.6 RBC 4.83 Hgb 13.5 Hct 41.1 MCV 85.1 MCH 28.0 MCHC 32.9 RDW 14.4 Plt Count 168 MPV 9.2 D Sodium 142 Potassium 4.3 Chloride 104 Carbon Dioxide 31 Anion Gap 7 L BUN 13 Creatinine 0.8 Creat Clearance w eGFR > 60 Random Glucose 77 Calcium 8.3 L Total Bilirubin 0.3 AST 32 ALT 47 Alkaline Phosphatase 86 Total Protein 6.5 Albumin 3.1 L Urine Color Urine Appearance Urine pH Ur Specific [place] Urine Protein Urine Glucose (UA) Urine Ketones Urine Blood Urine Nitrite Urine Bilirubin Urine Urobilinogen Ur Leukocyte Esterase RPR Titer HIV 1&2 Antibody Screen Negative HIV P24 Antigen Negative 04/10/18 04/12/18 07:00 18:00 WBC RBC Hgb Hct MCV MCH MCHC RDW Plt Count MPV Sodium Potassium Chloride Carbon Dioxide Anion Gap BUN Creatinine Creat Clearance w eGFR Random Glucose Calcium Total Bilirubin AST ALT Alkaline Phosphatase Total Protein Albumin Urine Color Yellow Urine Appearance Clear Urine pH 5.0 Ur Specific [place] 1.020 Urine Protein Negative Urine Glucose (UA) Negative Urine Ketones Negative Urine Blood Negative Urine Nitrite Negative Urine Bilirubin Negative Urine Urobilinogen Negative Ur Leukocyte Esterase Negative RPR Titer Nonreactive HIV 1&2 Antibody Screen HIV P24 Antigen Assessment: 04/14/18 11:59 NAD Plan: D/C TODAY.FOLLOW UP WITH AFTERCARE PLANNED.
== END 2018-04-14 08:54 | disposition home or self-care (01) | DRG 773 ==
LOC: YASAS 17:12 → Y3N 21:50
PROC: HZ2ZZZZ Detoxification Services for Substance Abuse Treatment (ICD-10-PCS; principal; 2018-04-09)
DX: F11.23 Opioid dependence with withdrawal (principal); F12.20 Cannabis dependence, uncomplicated; F17.213 Nicotine dependence, cigarettes, with withdrawal; J45.909 Unspecified asthma, uncomplicated; K21.9 Gastro-esophageal reflux disease without esophagitis; B18.2 Chronic viral hepatitis C; Z88.0 Allergy status to penicillin; Z88.8 Allergy status to other drugs, medicaments and biological substances
CPT/HCPCS: 36415; 80053; 81003; 85027; 86593; 87389

== ENCOUNTER 2019-02-15 09:38 | Emergency (ER) | payer OTHER ==
[2019-02-15] MEDS ORDERED: IBUPROFEN 600 MG TABLET (FP) PO ONE ×2 (09:50)
--- NOTE | 2019-02-15 09:52 | PDOC ---
History of Present Illness - General Chief Complaint: Injury Stated Complaint: SPRAINED LEFT WRIST Time Seen by Provider: 02/15/19 09:46 History Source: Patient Exam Limitations: No Limitations Past History - Past Medical History Allergies/Adverse Reactions: Allergies Allergy/AdvReac Type Severity Reaction Status Date / Time cefepime Allergy Severe Verified 02/15/19 09:42 Penicillins Allergy Unknown Verified 02/15/19 09:42 Home Medications: Ambulatory Orders Albuterol Sulfate Inhaler - [Ventolin Hfa Inhaler -] See Protocol PO QID PRN Ibuprofen 800 mg PO TID PRN #30 tablet 12/17/17 Anemia: No Asthma: Yes (on albuteol inhaler) Cancer: No Cardiac Disorders: No CVA: No COPD: No CHF: No DVT: No Dementia: No Diabetes: No GI Disorders: No Disorders: No HTN: No Hypercholesterolemia: No Kidney Stones: No Liver Disease: No Psychiatric Problems: Yes (DEPRESSION,BIPOLAR,) Seizures: No Thyroid Disease: No - Surgical History Abdominal Surgery: No Appendectomy: No Cardiac Surgery: No Cholecystectomy: No Lung Surgery: No Neurologic Surgery: No Orthopedic Surgery: Yes (R upper arm with injury as a child) - Reproductive History Testicular Surgery: No - Immunization History Immunization Up to Date: Yes - Psycho Social/Smoking Cessation Hx Smoking History: Never smoked Have you smoked in the past 12 months: No Number of Cigarettes Smoked Daily: 10 If you are a former smoker, when did you quit?: 25 days as of 03/28/15 Information on smoking cessation initiated: No 'Breaking Loose' booklet given: 04/09/18 Hx Alcohol Use: No Drug/Substance Use Hx: No Substance Use Type: Heroin, Marijuana Hx Substance Use Treatment: No Trauma Specific PMHX - Complaint Specific PMHX Arthritis: No *Physical Exam - Vital Signs Last Vital Signs Temp Pulse Resp BP Pulse Ox 97.8 F 61 16 149/79 98 02/15/19 09:43 02/15/19 09:43 02/15/19 09:43 02/15/19 09:43 02/15/19 09:43 - Physical Exam General Appearance: No: Apparent Distress Extremity: positive: Other (+TTP along radial aspect of L wrist, no snuffbox tenderness, no deformity or large swelling noted, able to supinate and pronate wrist, pain with flexion and extension of wrist, LUE neurovascularly intact) Integumentary: negative: Swelling, Ecchymosis, Bruising Neurologic: positive: Alert ED Treatment Course - RADIOLOGY Radiology Studies Ordered: Category Date Time Status WRIST W/HAND-LEFT* [RAD] Stat Radiology 02/15/19 09:50 Ordered Medical Decision Making - Medical Decision Making 53 y/o M hx of substance abuse presents with L wrist injury from yesterday. Patient tripped over sidewalk yesterday, landing with most of weight on L wrist. States landed with L wrist in flexed position. Denies L shoulder/elbow pain, head/neck trauma, LOC, numbness/tingling Plan: xray to r/o fracture, motrin, reassess 02/15/19 09:51 xray negative for fracture L wrist sherwin-wrapped stable for dc 02/15/19 10:07 Discharge - Discharge Information Problems reviewed: Yes Clinical Impression/Diagnosis: Left wrist sprain Qualifiers: Encounter type: initial encounter Qualified Code(s): S63.502A - Unspecified sprain of left wrist, initial encounter Condition: Stable Disposition: HOME - Admission No - Additional Discharge Information Prescription Drug Monitoring Program (I-STOP) results: I-STOP not reviewed - Follow up/Referral - Patient Discharge Instructions Patient Printed Discharge Instructions: DI for Wrist Sprain Additional Instructions: Thank you for choosing [facility]. It was a pleasure taking care of you. You may take Motrin 600 mg every 6 hours by mouth as needed for mild to moderate pain. Take Motrin with food. Use the sherwin wrap for comfort Apply ice to site as needed Follow-up with your doctor in 3 days Return to the Emergency Department if your symptoms worsen or persist or have other concerning symptoms. - Post Discharge Activity
[2019-02-15 10:25] VITALS: BP 149/79; PULSE 61; TEMP 97.8; BMI 25.1
== END 2019-02-15 10:18 | disposition home or self-care (01) ==
LOC: JER 09:38
DX: S63.502A Unspecified sprain of left wrist, initial encounter (principal); W01.0XXA Fall on same level from slipping, tripping and stumbling without subsequent striking against object, initial encounter; Y93.01 Activity, walking, marching and hiking; Y92.480 Sidewalk as the place of occurrence of the external cause; Y99.8 Other external cause status; J45.909 Unspecified asthma, uncomplicated; F31.9 Bipolar disorder, unspecified; Z88.0 Allergy status to penicillin
CPT/HCPCS: 73110-TC-LT-FY; 73130-TC-LT-FY; 99281-25

== ENCOUNTER 2020-10-26 07:15 | Emergency (ER) | payer OTHER ==
[2020-10-26 07:43] VITALS: BP 145/81; PULSE 54; TEMP 97.9; BMI 25.8
== END 2020-10-26 11:34 | disposition home or self-care (01) ==
LOC: JER 07:15
DX: M21.331 Wrist drop, right wrist (principal)
CPT/HCPCS: 70450-TC; 99284-25

== ENCOUNTER 2021-06-23 09:07 | Emergency (ER) | payer OTHER ==
[2021-06-23 09:18] VITALS: BP 146/80; PULSE 59; TEMP 97.8; BMI 26.6
== END 2021-06-23 09:58 | disposition home or self-care (01) ==
LOC: JERFT 09:07
DX: K08.89 Other specified disorders of teeth and supporting structures (principal)
CPT/HCPCS: 99281-25